=== PATIENT | male | born 1995 | race Caucasian/White ===

== ENCOUNTER 2020-10-05 15:41 | Emergency (ER) | payer BC, SELFPAY ==
--- NOTE | ~2020-10-05 | CT_ITS ---
EXAMINATION: CT ABDOMEN AND PELVIS WITHOUT CONTRAST CLINICAL INFORMATION: Left lower quadrant pain. Question stone COMPARISON: None TECHNIQUE: Multidetector volumetric imaging was performed from the superior aspect of the liver through the pubic symphysis. Sagittal and coronal reformatted images were obtained on the technologist's workstation. This CT examination was performed using dose optimization techniques as appropriate, variously including the following: *Automated exposure control *Adjustment of mA and/or kV according to patient size (this includes techniques or standardized protocols for targeted exams where dose is matched to indication/reason for exam; i.e. extremities or head) *Use of iterative reconstruction technique DLP: 847 mGy-cm FINDINGS: The lack of intravenous contrast limits evaluation of the solid visceral organs including the liver, spleen, pancreas, and kidneys. LUNG BASES: The visualized lung bases are unremarkable. LIVER, GALLBLADDER, AND BILIARY TREE: Limited non-contrast evaluation is normal. No gross focal hepatic lesion. Normal liver size and contour. No gross biliary ductal dilation. The gallbladder is unremarkable with no evidence of radiopaque gallstones, gallbladder wall thickening, or obvious pericholecystic inflammatory changes. PANCREAS: Limited non-contrast evaluation is normal. No yanni-pancreatic fluid. SPLEEN: Limited non-contrast evaluation is normal. ADRENAL GLANDS: Normal; no adrenal mass. KIDNEYS AND URETERS: There is a 3-4 mm left proximal ureteral calculus. Mild left hydronephrosis. There is a punctate 1 mm nonobstructing calculus in the left mid kidney image 334. No right renal calculi or hydronephrosis. GASTROINTESTINAL TRACT: Small bowel and colon are non-dilated. No bowel wall thickening. No pericolonic inflammatory changes to suggest colitis or diverticulitis. ABDOMINAL WALL: No hernia seen. LYMPH NODES: No pathologically enlarged lymph nodes in the abdomen or pelvis. VASCULAR: Normal caliber abdominal aorta. BLADDER: Unremarkable. PELVIC VISCERA: Normal noncontrast appearance of the prostate and seminal vesicles. OSSEOUS STRUCTURES: No acute or suspicious osseous abnormalities. CT/CT abdomen pelvis wo con IMPRESSION: 3-4 mm left proximal ureteral calculus resulting in mild left hydronephrosis.
[2020-10-05 16:06] VITALS: BP 157/94; PULSE 89; RESP 18; TEMP 36.6; O2SAT 98; BMI 36.5
[2020-10-05 16:16] LABS: MANUAL DIFF FLAG NO
[2020-10-05 16:17] LABS: Basophils Absolute Auto 0.1 X10*3/uL (0.0-0.2); Basophils Percent Auto 0.7 % (0-2); Eosinophils Absolute Auto 0.4 X10*3/uL (0.0-0.4); Eosinophils Percent Auto 3.2 % (0-4); Hematocrit 45.3 % (42-52); Hemoglobin 15.5 g/dl (14.0-18.0); Imm Gran Abs Auto 0.05 X10*3/uL (0.00-0.03); Imm Gran Pct Auto 0.4 % (0.0-0.4); Lymphocytes Absolute Auto 4.1 X10*3/uL (1.2-4.9); Lymphocytes Percent Auto 35.7 % (20-40); Mean Corpuscular HGB Conc 34.2 g/dl (31.0-36.0); Mean Corpuscular Volume 84.7 fL (80-98); Mean Platelet Volume 9.6 fL (9.4-12.4); Monocytes Absolute Auto 0.8 X10*3/uL (0.1-1.2); Monocytes Percent Auto 7.2 % (2-11); Neutrophils Absolute Auto 6.1 X10*3/uL (2.0-8.3); Neutrophils Percent Auto 52.8 % (45-73); Platelet Count 343 X10*3/uL (160-400); Red Blood Count 5.35 X10*6/uL (4.60-5.80); Red Cell Distribution Width 12.8 % (11.0-16.0); White Blood Count 11.6 X10*3/uL (4.8-10.8)
--- NOTE | 2020-10-05 16:36 | ED_ITS ---
HPI - Abdominal Pain General Chief Complaint: Abdominal Pain Stated Complaint: vomiting, abdominal pain Time Seen by Provider: 10/05/20 16:36 Source: patient Mode of arrival: ambulatory Limitations: no limitations History of Present Illness HPI narrative: Patient is 25 years old with no significant past medical history notice pain in left lower quadrant started just an hour ago pain is sharp radiating to his left testicle no dysuria or hematuria patient never had similar pain in the past no fever no chills no nausea no vomiting no family history of kidney stone patient had normal bowels no blood in stool Related Data Previous Rx's Medication Instructions Recorded oxycodone 5 mg PO Q6H PRN #20 tab 10/05/20 tamsulosin [Flomax] 0.4 mg PO DAILY #7 cap 10/05/20 Allergies Allergy/AdvReac Type Severity Reaction Status Date / Time Sulfa (Sulfonamide Allergy Unknown UNKNOWN Unverified 01/11/20 19:07 Antibiotics) [SULFA (SULFONAMIDE ANTIBIOTICS)] Review of Systems Review of Systems Constitutional : No Weight loss, No Fever, No Chills ENT/Mouth : No sore throat, No Rhinorrhea Eyes: No Eye Pain, No Swelling Cardiovascular : No Chest Pain, no palpitations Respiratory : No Cough, No Sputum, no shortness of breath Gastrointestinal : ++Nausea, No Vomiting, No Diarrhea,++ abdominal Pain, no black stools Genitourinary : No Dysuria, No Urinary Frequency Musculoskeletal : No joint pain, No Myalgias, No Joint Swelling Skin : No Skin Lesions, No rash Neuro : No Weakness, No Numbness, No Dizziness, No Headache Psych : No Anxiety/Panic, No Depression Heme/Lymph: No Bruising, No Lymphadenopathy Endocrine : No Polyuria, No Polydipsia All other systems reviewed and are negative Physical Exam Vital Signs: Vital Signs: Last Vital Signs Temp 98 F 10/05/20 18:00 Pulse 77 10/05/20 18:00 Resp 18 10/05/20 18:00 BP 138/82 10/05/20 18:00 Pulse Ox 99 10/05/20 18:00 Body Mass Index 36.5 Appearance: Alert. Oriented X3. No acute distress. Eyes: PERRLA, No Nystagmus ENT: Pharynx normal. Oral Mucosa moist Neck: Normal inspection. Neck supple. CVS: Normal heart rate and rhythm. Pulses normal. Respiratory: No respiratory distress. Equal air entry bilateral, no wheezing/rales/rhonchi Abdomen: Soft , deep tenderness LLQ, no rebound tenderness or guarding. Bowel sounds are present, no mass palpable, no CVA tenderness Skin: Skin warm and dry. Normal skin color. Normal skin turgor. Extremities: No lower extremity edema. No calf tenderness Neuro: Oriented X 3. No motor deficit. No sensory deficit.No cerebellar signs , cranial nerves II-XII intact MDM - Abdominal Pain MDM Narrative Medical decision making narrative: Patient left sided pain from small 3 mm stone with slight hydronephrosis. In the ER before leaving patient urinated and noticed small amount of stone he passed likely. Patient is pain-free at the time of discharge Lab Data Attestation: I reviewed the patient's lab results. Result diagrams: 10/05/20 16:12 10/05/20 16:12 Labs: Lab Results 10/05/20 10/05/20 10/05/20 Range/Units 16:12 16:12 19:29 WBC 11.6 H (4.8-10.8) X10*3/uL RBC 5.35 (4.60-5.80) X10*6/uL Hgb 15.5 (14.0-18.0) g/dl Hct 45.3 (42-52) % MCV 84.7 (80-98) fL MCH 29.0 (27.0-33.0) pg MCHC 34.2 (31.0-36.0) g/dl RDW 12.8 (11.0-16.0) % Plt Count 343 (160-400) X10*3/uL MPV 9.6 (9.4-12.4) fL Immature Gran % (Auto) 0.4 (0.0-0.4) % Neut % (Auto) 52.8 (45-73) % Lymph % (Auto) 35.7 (20-40) % [place] % (Auto) 7.2 (2-11) % Eos % (Auto) 3.2 (0-4) % Baso % (Auto) 0.7 (0-2) % Lymph # (Auto) 4.1 (1.2-4.9) X10*3/uL [place] # (Auto) 0.8 (0.1-1.2) X10*3/uL Eos # (Auto) 0.4 (0.0-0.4) X10*3/uL Baso # (Auto) 0.1 (0.0-0.2) X10*3/uL Abs Immat Gran (auto) 0.05 H (0.00-0.03) X10*3/uL Absolute Neuts (auto) 6.1 (2.0-8.3) X10*3/uL Absolute Nucleated RBC 0.000 (0.0-0.012) X10*3/uL Nucleated RBC % (auto) 0.0 (0.0-0.2) /100WBC Sodium 139 (135-145) mmol/L Potassium 3.8 (3.3-5.1) mmol/L Chloride 108 (96-108) mmol/L Carbon Dioxide 18 L (22-29) mmol/L Anion Gap 17 (12-20) BUN 15 (9-16) mg/dL Creatinine 1.22 (0.5-1.4) mg/dL Estim Creat Clear Calc 111.7 Estimated GFR > 60 Random Glucose 149 H (60-115) mg/dL Calcium 10.1 (8.4-10.2) mg/dL Total Bilirubin 1.3 H (0.0-1.0) mg/dL Direct Bilirubin 0.5 (0.0-0.5) mg/dL AST 39 H (5-37) U/L ALT 34 (0-40) U/L Alkaline Phosphatase 73 (39-117) U/L Total Protein 7.4 (6.5-8.0) g/dL Albumin 4.6 (3.5-5.0) g/dL Lipase 45 (8-78) U/L Urine Color YELLOW Urine Appearance CLOUDY Urine pH 6.0 (5.0-8.0) Ur Specific [place] >= 1.030 H (1.005-1.025) Urine Protein 1+ H (NEG-TRACE) MG/DL Urine Glucose (UA) NEG (NEG) MG/DL Urine Ketones 40 (NEG) MG/DL Urine Blood 3+ H (NEG) Urine Nitrite NEG (NEG) Ur Leukocyte Esterase NEG (NEG) Urine RBC 50-75 H (0) /HPF Urine WBC 0-2 (0-4) /HPF Ur Squamous Epith Cells 2+ /LPF Urine Bacteria TRACE /LPF Discharge Plan Discharge Clinical Impression: Calculus of kidney Patient Disposition: Home, Self-Care Instructions: Kidney Stones (ED) Prescriptions: New oxycodone 5 mg tablet 5 mg PO Q6H PRN (Reason: Moderate Pain (Scale Score 5-6)) Qty: 20 RF: 0 tamsulosin [Flomax] 0.4 mg capsule 0.4 mg PO DAILY Qty: 7 RF: 0 Referrals: Paddy Goldman MD [Physician] - 1 week Interventions: ED Discharge Assessment Last Done: 10/05/20 19:53 Discharge Date/Time: 10/05/20 19:54 [facility] Social History Social History Advance Directives: No Advance Directives Information Provided: No
[2020-10-05 16:48] LABS: Alanine Aminotransferase 34 U/L (0-40); Albumin Level 4.6 g/dL (3.5-5.0); Alkaline Phosphatase 73 U/L (39-117); Anion Gap 17 (12-20); Aspartate Amino Transferase 39 U/L (5-37); Bilirubin Direct 0.5 mg/dL (0.0-0.5); Bilirubin Total 1.3 mg/dL (0.0-1.0); Blood Urea Nitrogen 15 mg/dL (9-16); Calcium 10.1 mg/dL (8.4-10.2); Carbon Dioxide 18 mmol/L (22-29); Chloride 108 mmol/L (96-108); Creatinine Clr Calc Pharmacy 111.7; Estimated Glomerular Filt Rate > 60; Glucose Random 149 mg/dL (60-115); Lipase 45 U/L (8-78); Potassium 3.8 mmol/L (3.3-5.1); Sodium 139 mmol/L (135-145); Total Protein 7.4 g/dL (6.5-8.0)
[2020-10-05 16:57] VITALS: RESP 18
[2020-10-05] MEDS: ondansetron HCL 4 MG/2 ML VIAL IVPUSH (16:57)
[2020-10-05] MEDS: Morphine Sulfate 4 MG/ML CARTRIDGE IVPUSH (16:57)
[2020-10-05 18:00] VITALS: BP 138/82; PULSE 77; RESP 18; TEMP 36.6; O2SAT 99
[2020-10-05] MEDS: Ketorolac Tromethamine 30 MG/ML VIAL IVPUSH (18:35)
[2020-10-05] MEDS: 0.9 % Sodium Chloride 1,000 ML 999 ML IVCONT (18:36)
[2020-10-05] MEDS: Tamsulosin HCL 0.4 MG CAPSULE PO (18:36)
[2020-10-05 19:36] LABS: Glucose Urine UA NEG (NEG); Leukocyte Esterase Urine NEG (NEG); Nitrite Urine NEG (NEG); Specific Gravity - Urine >= 1.030 (1.005-1.025); Urine Blood 3+ (NEG); Urine Ketones 40 MG/DL (NEG); Urine Protein 1+ MG/DL (NEG-TRACE)
[2020-10-05 19:38] LABS: Appearance Urine CLOUDY; Color Urine YELLOW
[2020-10-05 19:43] LABS: Bacteria Urine TRACE /LPF; RBC Urine 50-75 /HPF (0); Squamous Epithelial Cell Urine 2+ /LPF; WBC Urine 0-2 /HPF (0-4)
== END 2020-10-05 19:54 | disposition home or self-care (01) ==
PROVIDERS: Emergency Provider Internal Medicine
DX: N20.0 Calculus of kidney (principal)
CPT/HCPCS: 36415; 74176; 80053; 80076; 81001; 82248; 83690; 85025; 96361; 96374; 96375; 99284; J1885; J2270; J2405

== ENCOUNTER 2020-11-12 13:16 | Emergency (ER) | payer BC, SELFPAY ==
--- NOTE | ~2020-11-12 | US_ITS ---
EXAMINATION: US RETROPERITONEAL LIMITED (RENAL ONLY) CLINICAL INFORMATION: Left pelvic and testicular pain.. COMPARISON: None TECHNIQUE: Routine grayscale imaging of the kidneys is performed. FINDINGS: RIGHT KIDNEY: 11.6 x 4.3 x 5.8 cm (SAG x AP x TRV). The kidney is normal in size, contour, and echogenicity. Renal cortical thickness is normal. No calculi or focal parenchymal lesions. No hydronephrosis. LEFT KIDNEY: 13.2 x 6.1 x 5.4 cm (SAG x AP x TRV). The kidney is normal in size, contour, and echogenicity. Renal cortical thickness is normal. There is mild hydronephrosis but no echogenic stones, cyst or solid mass. Bilateral ureteral jets were not seen. The bladder is not distended. US/US renal BI IMPRESSION: Mild left hydronephrosis without any echogenic stones. The right kidney is unremarkable.
[2020-11-12 13:37] VITALS: BP 141/85; PULSE 75; RESP 18; TEMP 36.7; O2SAT 96; BMI 37.0
[2020-11-12 13:53] LABS: Glucose Urine UA NEG (NEG); Leukocyte Esterase Urine NEG (NEG); Nitrite Urine POS (NEG); PH 5.5 (5.0-8.0); Specific Gravity - Urine >= 1.030 (1.005-1.025); Urine Blood 3+ (NEG); Urine Ketones NEG (NEG); Urine Protein 2+ MG/DL (NEG-TRACE)
[2020-11-12 14:00] LABS: Appearance Urine CLOUDY; Color Urine YELLOW
[2020-11-12 14:21] LABS: Bacteria Urine 2+ /LPF; Mucus Urine 1+ /LPF; RBC Urine TNTC /HPF (0); Squamous Epithelial Cell Urine 1+ /LPF
--- NOTE | 2020-11-12 14:44 | ED.MALEGU ---
HPI - Male Genitourinary General Chief complaint: Urogenital-Male Stated complaint: QUEST UTI Time Seen by Provider: 11/12/20 14:05 Source: patient Mode of arrival: ambulatory History of Present Illness HPI Narrative: 25-year-old male with a past medical history of renal stones last month presenting to the ED complaining of left-sided lower pelvic/suprapubic pain radiating to left testicle, urinary frequency, dysuria, and hematuria since yesterday. Patient also requesting STI testing as is sexually active with multiple partners. Denies fever, chills, nausea/diarrhea, penile discharge/lesions, flank pain, testicular swelling MD Complaint: testicle pain and dysuria Related Data Previous Rx's Medication Instructions Recorded oxycodone 5 mg PO Q6H PRN #20 tab 10/05/20 tamsulosin [Flomax] 0.4 mg PO DAILY #7 cap 10/05/20 ketorolac 10 mg PO TID PRN 5 Days #14 tab 11/12/20 levofloxacin 750 mg PO DAILY 7 Days #7 tab 11/12/20 tamsulosin [Flomax] 0.4 mg PO DAILY #10 cap 11/12/20 Allergies Allergy/AdvReac Type Severity Reaction Status Date / Time Sulfa (Sulfonamide Allergy Unknown UNKNOWN Verified 11/12/20 13:36 Antibiotics) [SULFA (SULFONAMIDE ANTIBIOTICS)] Review of Systems Review of Systems: Constitutional: No Fever, No Chills, No Fatigue, No Malaise Cardiovascular: No Chest Pain, No SOB Respiratory: No Cough, No Dyspnea Gastrointestinal: No Nausea, No Vomiting, +Abdominal pain, + left testicular pain/pelvic pain Genitourinary: + Dysuria, + Urinary Frequency, + Hematuria, No Flank Pain, No Penile discharge, No testicular swelling Musculoskeletal: No joint pain, No Myalgias, No Joint Swelling Skin: No Skin Lesions, No rash Neuro: No Weakness, No Numbness, No Headache Yes all other systems are reviewed and are negative [facility] Past Medical History Attestation statement: The following information was validated with the patient. Social History Social History Advance Directives: Yes Advance Directives Information Provided: Yes Advance Directives on File: No Physical Exam Vital Signs: Vital Signs: Last Vital Signs Temp 97.2 F 11/12/20 15:25 Pulse 75 11/12/20 15:25 Resp 16 11/12/20 15:25 BP 130/77 11/12/20 15:25 Pulse Ox 97 11/12/20 15:25 Body Mass Index 37.0 Const: General: cooperative, healthy appearing and no acute distress Orientation/consciousness: patient oriented x3 Limitations: no limitations HENMT: Head: Yes normal to inspection Ears: hearing grossly normal bilaterally General nose exam: Normal external nose present Face and sinus: Yes normal facial exam Eyes: General: appearance normal, both eyes and all related structures EOM: EOMs intact bilaterally Neck: Neck: Yes normal visual inspection Resp: Effort & Inspection: normal respiratory effort and no respiratory distress Cardio: Rate: regular rate GI: Inspection: Yes normal to inspection Palpation (GI): Soft to palpation, nontender, no guarding and not rigid : General: Yes no CVA tenderness Male General Exam: No Genital lesions present Penis: normal penis, circumcised and No Genital lesions present Meatus: meatus normal Scrotum: scrotum normal Testes: Testes normal, epididymides normal, no testicular mass and no testicular tenderness Back/Spine/Pelvis: Back: no CVA tenderness Skin: Rashes: no rashes Wounds: no wounds Neuro: General: patient oriented x3 Gait exam (Neuro): Normal gait present Extrem: General: Yes normal to inspection Course Course Course Narrative: -UA is nitrate positive and with multiple RBCs -mild leukocytosis of 11.5, BUN 19 not otherwise unremarkable/reassuring US renal BI IMPRESSION: Mild left hydronephrosis without any echogenic stones. The right kidney is unremarkable. >>1549--on re-evaluation patient reports symptomatic improvement. Results discussed with patient including need for close follow-up with Urology and compliance with antibiotics. Worrisome signs and symptoms and strict return precautions discussed, he verbalized understanding feel safe for discharge home MDM - Male Genitourinary MDM Narrative Medical decision making narrative: 25-year-old male with a past medical history of renal stones last month presenting to the ED complaining of left-sided lower pelvic/suprapubic pain radiating to left testicle, urinary frequency, dysuria, and hematuria since yesterday. On exam VSS, NAD, abdomen soft/nontender, exam WNL, no testicular pain, no CVAT. Concern for renal stone vs UTI vs ?pyelo vs STI. Unlikely testicular torsion/epididymitis or orchitis without testicular or tenderness/swelling on exam. Low concern for appendicitis/diverticulitis as abdomen is soft/nontender Plan: UA, labs, renal ultrasound, symptomatic therapies, reassess Medical Records Attestation: I reviewed the patient's medical records. Lab Data Attestation: I reviewed the patient's lab results. Result diagrams: 11/12/20 14:37 11/12/20 14:37 Labs: Lab Results 11/12/20 11/12/20 11/12/20 Range/Units 13:45 14:37 14:37 WBC 11.5 H (4.8-10.8) X10*3/uL RBC 5.39 (4.60-5.80) X10*6/uL Hgb 15.7 (14.0-18.0) g/dl Hct 45.9 (42-52) % MCV 85.2 (80-98) fL MCH 29.1 (27.0-33.0) pg MCHC 34.2 (31.0-36.0) g/dl RDW 13.0 (11.0-16.0) % Plt Count 278 (160-400) X10*3/uL MPV 10.0 (9.4-12.4) fL Immature Gran % (Auto) 0.5 H (0.0-0.4) % Neut % (Auto) 62.1 (45-73) % Lymph % (Auto) 25.0 (20-40) % [place] % (Auto) 7.0 (2-11) % Eos % (Auto) 4.7 H (0-4) % Baso % (Auto) 0.7 (0-2) % Lymph # (Auto) 2.9 (1.2-4.9) X10*3/uL [place] # (Auto) 0.8 (0.1-1.2) X10*3/uL Eos # (Auto) 0.5 H (0.0-0.4) X10*3/uL Baso # (Auto) 0.1 (0.0-0.2) X10*3/uL Abs Immat Gran (auto) 0.06 H (0.00-0.03) X10*3/uL Absolute Neuts (auto) 7.1 (2.0-8.3) X10*3/uL Absolute Nucleated RBC 0.000 (0.0-0.012) X10*3/uL Nucleated RBC % (auto) 0.0 (0.0-0.2) /100WBC Sodium 141 (135-145) mmol/L Potassium 4.2 (3.3-5.1) mmol/L Chloride 107 (96-108) mmol/L Carbon Dioxide 24 (22-29) mmol/L Anion Gap 14 (12-20) BUN 19 H (9-16) mg/dL Creatinine 1.13 (0.5-1.4) mg/dL Estim Creat Clear Calc 121.6 Estimated GFR > 60 Random Glucose 99 (60-115) mg/dL Calcium 10.3 H (8.4-10.2) mg/dL Total Bilirubin 1.0 (0.0-1.0) mg/dL Direct Bilirubin 0.3 (0.0-0.5) mg/dL AST 23 D (5-37) U/L ALT 27 (0-40) U/L Alkaline Phosphatase 75 (39-117) U/L Total Creatine Kinase 178 H (38-174) U/L Total Protein 7.8 (6.5-8.0) g/dL Albumin 4.7 (3.5-5.0) g/dL Lipase 15 (8-78) U/L Urine Color YELLOW Urine Appearance CLOUDY Urine pH 5.5 (5.0-8.0) Ur Specific [place] >= 1.030 H (1.005-1.025) Urine Protein 2+ H (NEG-TRACE) MG/DL Urine Glucose (UA) NEG (NEG) MG/DL Urine Ketones NEG (NEG) MG/DL Urine Blood 3+ H (NEG) Urine Nitrite POS H (NEG) Ur Leukocyte Esterase NEG (NEG) Urine RBC TNTC H (0) /HPF Urine WBC 1-4 (0-4) /HPF Ur Squamous Epith Cells 1+ /LPF Urine Bacteria 2+ /LPF Urine Mucus 1+ /LPF Discharge Plan Discharge Clinical Impression: Urinary tract infection, Hydronephrosis Patient Disposition: Home, Self-Care Instructions: Urinary Tract Infection in Men (ED), Hydronephrosis (ED) Additional Instructions: Your blood work was reassuring today in the emergency department Your ultrasound showed back flow of urine into her left kidney, this could be a sign a kidney stone we did not see, or that he recently passed a stone, or of a kidney infection Levaquin as antibiotic, please take as prescribed Flomax will help dilate your urethra to help pass any stone Toradol as a pain medication, take with food If her pain persists or worsens, becomes unbearable, you of constant worsening nausea/vomiting please return to the ED You need to follow-up with urology Your STI culture should be back in a couple days, we will contact you with positive results. Please inform her partners of these results. Refrain from any sexual contact until you know your results Prescriptions: New levofloxacin 750 mg tablet 750 mg PO DAILY 7 Days Qty: 7 RF: 0 ketorolac 10 mg tablet 10 mg PO TID PRN (Reason: pain) 5 Days Qty: 14 RF: 0 tamsulosin [Flomax] 0.4 mg capsule 0.4 mg PO DAILY Qty: 10 RF: 0 No Action oxycodone 5 mg tablet 5 mg PO Q6H PRN (Reason: Moderate Pain (Scale Score 5-6)) Qty: 20 RF: 0 tamsulosin [Flomax] 0.4 mg capsule 0.4 mg PO DAILY Qty: 7 RF: 0 Referrals: Paddy Goldman MD [Physician] - 1 week
[2020-11-12 14:45] LABS: MANUAL DIFF FLAG NO
[2020-11-12 14:46] LABS: Basophils Absolute Auto 0.1 X10*3/uL (0.0-0.2); Basophils Percent Auto 0.7 % (0-2); Eosinophils Absolute Auto 0.5 X10*3/uL (0.0-0.4); Eosinophils Percent Auto 4.7 % (0-4); Hematocrit 45.9 % (42-52); Hemoglobin 15.7 g/dl (14.0-18.0); Imm Gran Abs Auto 0.06 X10*3/uL (0.00-0.03); Imm Gran Pct Auto 0.5 % (0.0-0.4); Lymphocytes Absolute Auto 2.9 X10*3/uL (1.2-4.9); Mean Corpuscular HGB Conc 34.2 g/dl (31.0-36.0); Mean Corpuscular Hemoglobin 29.1 pg (27.0-33.0); Mean Corpuscular Volume 85.2 fL (80-98); Monocytes Absolute Auto 0.8 X10*3/uL (0.1-1.2); Neutrophils Absolute Auto 7.1 X10*3/uL (2.0-8.3); Neutrophils Percent Auto 62.1 % (45-73); Platelet Count 278 X10*3/uL (160-400); Red Blood Count 5.39 X10*6/uL (4.60-5.80); White Blood Count 11.5 X10*3/uL (4.8-10.8)
[2020-11-12] MEDS: Ketorolac Tromethamine 15 MG/ML VIAL IVPUSH (14:51)
[2020-11-12] MEDS: ondansetron HCL 4 MG/2 ML VIAL IVPUSH (14:51)
[2020-11-12] MEDS: 0.9 % Sodium Chloride 1,000 ML 999 ML IVCONT (14:51)
[2020-11-12 15:07] LABS: Alanine Aminotransferase 27 U/L (0-40); Albumin Level 4.7 g/dL (3.5-5.0); Alkaline Phosphatase 75 U/L (39-117); Anion Gap 14 (12-20); Aspartate Amino Transferase 23 U/L (5-37); Bilirubin Direct 0.3 mg/dL (0.0-0.5); Blood Urea Nitrogen 19 mg/dL (9-16); Calcium 10.3 mg/dL (8.4-10.2); Carbon Dioxide 24 mmol/L (22-29); Chloride 107 mmol/L (96-108); Creatinine Clr Calc Pharmacy 121.6; Estimated Glomerular Filt Rate > 60; Glucose Random 99 mg/dL (60-115); Lipase 15 U/L (8-78); Potassium 4.2 mmol/L (3.3-5.1); Sodium 141 mmol/L (135-145); Total Protein 7.8 g/dL (6.5-8.0)
[2020-11-12 15:25] VITALS: BP 130/77; PULSE 75; RESP 16; TEMP 36.2; O2SAT 97
[2020-11-13 04:47] LABS: CT PCR NOT DETECTED (Not Detect.); NG PCR NOT DETECTED (Not Detect.)
== END 2020-11-12 16:11 | disposition home or self-care (01) ==
PROVIDERS: Physician Assistant; Emergency Provider Emergency Medicine
DX: N39.0 Urinary tract infection, site not specified (principal); N13.30 Unspecified hydronephrosis; Z87.442 Personal history of urinary calculi
CPT/HCPCS: 36415; 76775; 80048; 80076; 81001; 82550; 83690; 85025; 87491; 87591; 96361; 96374; 96375; 99284; J1885; J2405

== ENCOUNTER 2021-07-06 00:22 | Emergency (ER) | payer BC, SELFPAY ==
[2021-07-06 00:29] VITALS: BP 133/62; BP 138/88; PULSE 71; PULSE 78; RESP 16; TEMP 37; O2SAT 100; O2SAT 94; BMI 36.5
--- NOTE | 2021-07-06 00:30 | ED.GENADULT ---
HPI - General Adult General Chief complaint: ETOH/Substance Use Stated complaint: overdose Time Seen by Provider: 07/06/21 00:25 Source: patient and EMS Mode of arrival: EMS Limitations: no limitations History of Present Illness HPI narrative: Patient comes to the emergency room after a possible overdose. According to the patient, he took an overdose today, then he fell asleep at home and the couch. The patient's sister noticed that the patient's lips were cyanotic, called 911, police department arrived. Workup of the patient, no Narcan given. EMS arrived and the patient was forced by PD to come to the emergency room. Patient states that he feels well otherwise. Per EMS, no Narcan given Related Data Previous Rx's Medication Instructions Recorded oxycodone 5 mg tablet 5 mg PO Q6H PRN #20 tab 10/05/20 tamsulosin 0.4 mg capsule (Flomax) 0.4 mg PO DAILY #7 cap 10/05/20 ketorolac 10 mg tablet 10 mg PO TID PRN 5 Days #14 tab 11/12/20 levofloxacin 750 mg tablet 750 mg PO DAILY 7 Days #7 tab 11/12/20 tamsulosin 0.4 mg capsule (Flomax) 0.4 mg PO DAILY #10 cap 11/12/20 Allergies Allergy/AdvReac Type Severity Reaction Status Date / Time Sulfa (Sulfonamide Allergy Unknown UNKNOWN Verified 11/12/20 13:36 Antibiotics) [SULFA (SULFONAMIDE ANTIBIOTICS)] Review of Systems Review of Systems: Constitutional : No Weight loss, No Fever, No Chills, No Night Sweats, No Fatigue, No Malaise ENT/Mouth : No Hearing loss, No Ear Pain, No Nasal Congestion, No Sinus Pain, No Hoarseness, No sore throat, No Rhinorrhea, No Swallowing Difficulty Eyes: No Eye Pain, No Swelling, No Redness, No Foreign Body, No Discharge, No Vision Changes Cardiovascular : No Chest Pain, No SOB, No Dyspnea on Exertion, No Orthopnea, No Edema, No Palpitations Respiratory : No Cough, No Sputum, No Wheezing, No Smoke Exposure, No Dyspnea Gastrointestinal : No Nausea, No Vomiting, No Diarrhea, No Constipation, No abdominal Pain, No Hematochezia, No Melena Genitourinary : no irregular bleeding, No Dysuria, No Urinary Frequency, No Hematuria, No Urinary Incontinence, No Urgency, No Flank Pain, No Urinary Flow Changes, No Hesitancy Musculoskeletal : No joint pain, No Myalgias, No Joint Swelling Skin : No Skin Lesions, No rash Neuro : No Weakness, No Numbness, No Paresthesias, No Loss of Consciousness, No Dizziness, No Headache Psych : No Anxiety/Panic, No Depression, No SI/HI/AH/VH, Heme/Lymph: No Bruising, No Bleeding,No Lymphadenopathy Endocrine : No Polyuria, No Polydipsia, No Temperature Intolerance Physical Exam ED Vital Signs: Vital Signs - 24 hr 07/06/21 00:29 07/06/21 00:33 Temperature 98.6 F Pulse Rate 71 70 Respiratory Rate 16 16 Blood Pressure 133/62 Pulse Oximetry 94 93 BMI result Body Mass Index 36.5 Const Other: Appearance: Alert. Oriented X3. No acute distress. Eyes: Pupils equal, round and reactive to light. ENT: Pharynx normal. Neck: Normal inspection. Neck supple. No lymph nodes noted. No crepitus CVS: Normal heart rate and rhythm. Pulses normal. Normal S1 and S2 Respiratory: No respiratory distress. Breath sounds normal. No Wheezing. No rales Abdomen: Soft and nontender. No rigidity. No distention. Skin: Skin warm and dry. Normal skin color. Normal skin turgor. Extremities: No lower extremity edema. No Lacerations. No Rash Neuro: Oriented X 3. No motor deficit. No sensory deficit. Moving all extermities. No slurred speech. CN 2 through 12 grossly intact Psych: Calm, cooperative, normal affect Course Course Course Narrative: Patient remains awake, alert and oriented x3, calm and cooperative. Oxygen saturation 95-96% on room air. Patient has steady gait, unassisted. Discharge Plan Discharge Clinical Impression: Accidental overdose Patient Disposition: Home, Self-Care Instructions: Prescription Opioid Overdose (ED) Additional Instructions: Please follow-up with your primary care physician tomorrow. If you have any worsening or new symptoms, please return to the emergency room or call 911 Prescriptions: No Action oxycodone 5 mg tablet 5 mg PO Q6H PRN (Reason: Moderate Pain (Scale Score 5-6)) Qty: 20 0RF tamsulosin [Flomax] 0.4 mg capsule 0.4 mg PO DAILY Qty: 7 0RF levofloxacin 750 mg tablet 750 mg PO DAILY 7 Days Qty: 7 0RF ketorolac 10 mg tablet 10 mg PO TID PRN (Reason: pain) 5 Days Qty: 14 0RF tamsulosin [Flomax] 0.4 mg capsule 0.4 mg PO DAILY Qty: 10 0RF
[2021-07-06 00:33] VITALS: PULSE 70; RESP 16; O2SAT 93
[2021-07-06 01:12] VITALS: BP 121/69; PULSE 72; RESP 16; O2SAT 98
== END 2021-07-06 01:20 | disposition home or self-care (01) ==
PROVIDERS: Emergency Provider Emergency Medicine
DX: T40.1X1A Poisoning by heroin, accidental (unintentional), initial encounter (principal); Y92.9 Unspecified place or not applicable; Z79.899 Other long term (current) drug therapy; Z71.51 Drug abuse counseling and surveillance of drug abuser
CPT/HCPCS: 99284

== ENCOUNTER 2024-01-11 15:49 | Outpatient (AMB) | payer OTHER, SELFPAY ==
[2024-01-11 15:50] VITALS: BP 126/80; PULSE 62; TEMP 37.1; O2SAT 98; BMI 29.3
--- NOTE | 2024-01-11 15:50 | MHC.OFFWIV ---
Intake Vital Signs 01/11/24 15:50 Height 5 ft 8 in Weight 193 lb BMI 29.3 BP 126/80 Blood Pressure Location Rt brachial Position Sitting Pulse 62 Pulse Source Pulse Oximeter Temp 98.7 F Temp Source Oral Pulse Oximetry (%) 98 Oxygen Delivery Method Room Air Intake Visit Reasons: [employer] ?mass LT ear Intake Note: pt c/o growth on LT ear. ? mass. Started 2 days ago Patient Tobacco Use Status: Never used Tobacco Allergies Sulfa (Sulfonamide Antibiotics) [SULFA (SULFONAMIDE ANTIBIOTICS)] Allergy (Unknown, Verified 01/11/24 15:50) UNKNOWN Do you need a note to return to daycare/school/sports/work: No HPI HPI Comments History of Present Illness Details Patient is a 28-year-old male complaining of left earlobe pain and swelling for the last 2 days. He states it feels like there is a hard rock inside of his lower earlobe. He does state he has some pain inside of the earlobe as well. He denies any change in his hearing or fevers. [facility] Social History Patient Tobacco Use Status: Never used Tobacco Review of Systems Const All systems reviewed & are unremarkable except as noted in HPI and below Physical Exam Vital Signs: Last Vital Signs Temp 98.7 F 01/11/24 15:50 Pulse 62 01/11/24 15:50 BP 126/80 01/11/24 15:50 Pulse Ox 98 01/11/24 15:50 Oxygen Delivery Method Room Air 01/11/24 15:50 BMI result Body Mass Index 29.3 Const General: cooperative, healthy appearing, comfortable, no acute distress and well developed Orientation/consciousness: patient oriented x3 Limitations: no limitations HEENT Head: Yes normal to inspection Ears: hearing grossly normal bilaterally, external ears normal (Left lower earlobe has a 0.75 cm erythematous indurated area, suspicious fo), TM normal on the left, EAC's normal (left) and mastoids normal on the left General nose exam: Normal external nose present Face and sinus: Yes normal facial exam Neck Neck: Yes normal visual inspection and Yes supple Neuro General: patient oriented x3 Assessment & Plan Assessment & Plan (1) Abscess: Code(s): L02.91 - Cutaneous abscess, unspecified Plan: Not able to drain the abscess as it is not fluctuant, we will prescribe doxycycline. Advised if it does come to a head and feels soft, please return and we could try to drain it so he can stop the antibiotics. Gave recommendations on staying out of the sun and taking doxycycline with food. Plan See above Medications: New doxycycline hyclate 100 mg PO BID 10 tabs 0RF Coding Level of Care Code New Pt Level 3 (65389) Diagnoses Abscess L02.91
== END 2024-01-11 16:51 | disposition home or self-care (01) ==
PROVIDERS: Visit Provider Physician Assistant
DX: L02.91 Cutaneous abscess, unspecified (principal)

== ENCOUNTER → 2024-01-11 15:49 | Outpatient (BNVA) | payer OTHER, SELFPAY | DX: H60.02 Abscess of left external ear (principal) ==

== ENCOUNTER 2024-07-20 14:15 | Outpatient (AMB) | payer OTHER, SELFPAY ==
[2024-07-20 14:17] VITALS: BP 120/86; PULSE 118; TEMP 39.2; O2SAT 98
--- NOTE | 2024-07-20 14:17 | MHC.OFFWIV ---
Intake Vital Signs 07/20/24 14:17 Weight 204 lb BP 120/86 Blood Pressure Location Lt brachial Position Sitting Pulse 118 H Pulse Source Pulse Oximeter Temp 102.5 F H Temp Source Oral Pulse Oximetry (%) 98 Oxygen Delivery Method Room Air Intake Visit Reasons: EP Sore throat, fever Intake Note: Patient here for sore throat, chills that started last night. Patient Tobacco Use Status: Never used Tobacco Allergies Sulfa (Sulfonamide Antibiotics) [SULFA (SULFONAMIDE ANTIBIOTICS)] Allergy (Unknown, Verified 07/20/24 14:22) UNKNOWN Do you need a note to return to daycare/school/sports/work: Yes HPI HPI Comments History of Present Illness Details 29 y/o male patient [facility] Medical History (Updated 07/20/24 @ 14:50 by Jane Clayton NP) Acute streptococcal pharyngitis Social History Patient Tobacco Use Status: Never used Tobacco Review of Systems Const All systems reviewed & are unremarkable except as noted in HPI and below Physical Exam Vital Signs: Last Vital Signs Temp 102.5 F H 07/20/24 14:17 Pulse 118 H 07/20/24 14:17 BP 120/86 07/20/24 14:17 Pulse Ox 98 07/20/24 14:17 Oxygen Delivery Method Room Air 07/20/24 14:17 Const General: no acute distress; No comfortable Nutritional Appearance: overweight Orientation/consciousness: patient oriented x3 HEENT Head: Yes normocephalic Ears: external ears normal and TM abnormal with fluid behind the TM bilateral General nose exam: Nasal discharge present Mouth: moist mucous membranes and Abnormal oral and palatal mucosa present erythematous and white patches Throat: Yes abnormal tonsil (Enlarged Tonsils +3) Resp Effort & Inspection: normal respiratory effort and able to speak in complete sentences Auscultation: clear to auscultation bilaterally, no crackles, no rales, no rhonchi and no wheezes Cardio Rate: regular rate Heart sounds: S1 normal heart sound present and S2 normal heart sound present Neuro General: patient oriented x3 Results AMB Rapid Strep AMB Rapid Strep Negative Last Edit by NYDIA Edwards on 07/20/24 14:39 Results Reviewed Results Reviewed: Laboratory Last Values Strep Scn [facility] Negative 07/20/24 14:38 Assessment & Plan Assessment & Plan (1) Acute streptococcal pharyngitis: Code(s): J02.0 - Streptococcal pharyngitis Plan: Rapid Strep positive Ordered PCN Ordered Prednisone Acetaminophen for Fever relief Rest and hydrate well with plenty of warm fluids. Orders: Orders AMB Rapid Strep Screen Today Z13.9 - Encounter for screening, unspecified Medications: New penicillin V potassium 500 mg PO TID 30 tabs 0RF 10 days J02.0 - Streptococcal pharyngitis prednisone 50 mg PO DAILY 5 tabs 0RF 5 days J02.0 - Streptococcal pharyngitis acetaminophen 1,000 mg (2 x 500 mg) PO Q6H PRN 60 caps 0RF pain J02.0 - Streptococcal pharyngitis Coding Level of Care Code Est Pt Level 4 (92366) Diagnoses Acute streptococcal pharyngitis J02.0 Time Spent (min) 20
--- OUTSIDE RECORDS SUMMARY | 2024-07-20 17:57 | XMS_ITS ---
Author Organization [facility] Address [address] [place] [phone] Care Team Providers Care Coke Loader Name Role Phone JESSA MADISON Unavailable [phone] REASON FOR VISIT prep fu/sti testing Social History Sex Assigned At : Social History Observation Description Sex Assigned At Male Encounters Encounter Location Date Provider Diagnosis [place] [facility] [address] [place] [address] [place] [phone] 07/17/2024 JESSA MADISON Plan Of Treatment No Information Progress Notes * Pedro MAYFIELDDOB:1995 (29 yo M)Acc No.[id number]:07/17/2024 Progress Notes Patient:?Pedro MAYFIELD Provider:?Jessa Madison NP :1995???Age:29 Y???Sex:Male Estuardo e:07/17/2024 Address:[address] [place] [address] [address], [place], [id number] Subjective: * Chief Complaints: * ???1. Prep fu/sti testing. * Medical History:? Objective: * Vitals:? Assessment: Plan: * Treatment: * Billing Information: * Visit Code:? * Procedure Codes:? * Electronic signature of LAUREN MADISON NP on 07/20/2024 at 05:57 PM EDT Sign off status: Pending * Provider:?Jessa Madison NP Date:? 025 Generated for Printi ng/Faxing/eTransmitting on:?07/20/2024 05:57 PM EDT
--- OUTSIDE RECORDS SUMMARY | 2024-07-20 17:57 | XMS_ITS ---
Author Organization [facility] Address [address] [place] [phone] Care Team Providers Care Tennis Court Attendant Name Role Phone FELI MAYO Unavailable [phone] Allergies Allergen (clinical drug ingredient) Drug/Non Drug Allergy documented on EMR Reaction Allergy Type Onset Date Status Substance with sulfonamide structure and antibacterial mechanism of action (substance) sulfa (uncoded) Unknown Allergy Active REASON FOR VISIT PrEP restart, doxy-PEP start Medications Medication SIG (Take, Route, Fr equency, Duration) Notes Start Date End Date Status Truvada 200-300 MG 1 tablet Orally Once a day for 90 days Active Social History Sex Assigned At : Social History Observation Description Sex Assigned At Male Encounters Encounter Location Date Provider Diagnosis [address] [phone] 04/15/2024 FELIKASH MAYO Other correction (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 therapy Z79.899 and HIV Screening Z11.4 Assessments Encounter Date Diagnosis (ICD Code) Assessment Notes Treatment Notes Treatment Clinical Notes Section Notes 04/15/2024 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 Refill Truvada Tablet, 200-300 MG, Orally, 90 Tablet, 1 tablet, Once a day, 90 days, Refills=0 Subjective: * Chief Complaints: * ???PrEP restart, doxy-PEP st art * Medical History:? * Surgical History:? * Hospitalization/Major Diagno stic Procedure:? * Medications:? * Allergies:?sulfano[Allergies Verified] Objective: * Vitals:? * Physical Examination:? Assessment: * Assessment: 1.?HIV Screening - Z11.4 (Pr imary)???2.?Other correction (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 therapy - Z79.899??? Plan: * Treatment: 2.?Other correction (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 therapy? Refill Truvada Tablet, 200-300 MG, 1 tablet, Orally, Once a day, 90 days, 90 Tablet, Refills 0.?? * Procedure Codes:? * true * Date:? Generated for Bernarda chapman/Mehnaz/eTransmitting on:?07/20/2024 05:57 PM EDT
--- OUTSIDE RECORDS SUMMARY | 2024-07-20 17:57 | XMS_ITS | Patient Health Record ---
[facility] Organization [facility] Address [address] [id number] Care Team Providers Care Unattended Ground Sensor Specialist Name Role Phone CHRISTINEALEJO Duncan Unavailable [phone] FELI MAYO Unavailable [phone] Subha March Unavailable [phone] Allergies Allergen (clinical drug ingredient) Drug/Non Drug Allergy documented on EMR Reaction Allergy Type Onset Date Status Substance with sulfonamide structure and antibacterial mechanism of action (substance) sulfa (uncoded) Unknown Allergy Active Results Component Value Reference Range Notes Ct/GC PENNIE, Pharyngeal-[id number] Reviewed date:04/21/2024 04:44:21 PM Interpretation:Negative Performing Lab:[facility] [place], [address], [address], [facility], Phone - [phone], Director - [facility] Notes/Report: Clinical Information:SRC:Urine C. trachomatis, PENNIE, Pharyn Negative Negative N. gonorrhoeae, PENNIE, Pharyn Negative Negative Ct/GC PENNIE, Rectal-[id number] Reviewed date:04/21/2024 04:44:34 PM Interpretation:Negative Performing Lab:[facility] [place], [address], [address], [facility], Phone - [phone], Director - [facility] Notes/Report: Clinical Information:SRC:Urine C. trachomatis, PENNIE, Rectal Negative Negative N. gonorrhoeae, PENNIE, Rectal Negative Negative Chlamydia/GC Amplification-1 [id number] Reviewed date:04/21/2024 04:44:48 PM Interpretation:Negative Performing Lab:[facility] [place], [address], [address], [facility], Phone - [phone], Director - [facility] Notes/Report: Clinical Information:SRC:Urine Chlamydia trachomatis, PENNIE Negative Negative Neisseria gonorrhoeae, PENNIE Negative Negative HIV Ab/p24 Ag with Reflex-08 [id number] Reviewed date:04/21/2024 04:44:05 PM Interpretation:Negative Performing Lab:[facility] [place], [address], [address], [place], Phone - [phone], Director - [facility] Notes/Report: Clinical Information:SRC:Urine HIV Ab/p24 Ag Screen Non Reactive Non Reactive HIV-1/HIV-2 antibodies and HIV-1 p24 antigen were NOT detected. There is no laboratory evidence of HIV infection. HIV Negative T pallidum Screening Montara -[id number] Reviewed date:04/21/2024 04:43:51 PM Interpretation:Negative Performing Lab:[facility], [address], [address], [place], Phone - [phone], Director - [facility] Notes/Report: Clinical Information:SRC:Urine T pallidum Antibodies Non Reactive Non Reactive Ct/GC PENNIE, Pharyngeal-[id number] Reviewed date:01/12/2024 02:05:07 PM Interpretation:Negative Performing Lab:[facility] [place], [address], [address], [place], Phone - [phone], Director - [facility] Notes/Report: C. trachomatis, PENNIE, Pharyn Negative Negative N. gonorrhoeae, PENNIE, Pharyn Negative Negative Ct/GC PENNIE, Rectal-[id number] Reviewed date:01/14/2024 09:06:21 AM Interpretation:GC Positive Performing Lab:[facility] [place], [address], [address], [place], Phone - [phone], Director - [facility] Notes/Report: C. trachomatis, PENNIE, Rectal Negative Negative N. gonorrhoeae, PENNIE, Rectal Positive Negative Chlamydia/GC Amplification-1 [id number] Reviewed date:01/12/2024 02:04:58 PM Interpretation:Negative Performing Lab:[facility] [place], [address], [address], [place], Phone - [phone], Director - [facility] Notes/Report: Chlamydia trachomatis, PENNIE Negative Negative Neisseria gonorrhoeae, PENNIE Negative Negative HIV Ab/p24 Ag with Reflex-08 [id number] Reviewed date:01/12/2024 02:04:46 PM Interpretation:Non-reactive Performing Lab:[facility] [place], [address], Phone - [phone], Director - [facility] Notes/Report: HIV Ab/p24 Ag Screen Non Reactive Non Reactive HIV-1/HIV-2 antibodies and HIV-1 p24 antigen were NOT detected. There is no laboratory evidence of HIV infection. HIV Negative T pallidum Screening Montara -[id number] Reviewed date:01/12/2024 02:04:35 PM Interpretation:Non-reactive Performing Lab:[facility] [place], [address], Phone - [phone], Director - [facility] Notes/Report: T pallidum Antibodies Non Reactive Non Reactive Chlamydia/GC Amplification-1 [id number] Reviewed date:02/03/2024 01:22:11 PM Interpretation:Negative Performing Lab:[facility] [place], [address], [address], [facility], Phone - [phone], Director - [facility] Notes/Report: Chlamydia trachomatis, PENNIE Negative Negative Neisseria gonorrhoeae, PENNIE Negative Negative Ct/GC PENNIE, Rectal-[id number] Reviewed date:02/03/2024 01:22:22 PM Interpretation:Negative Performing Lab:[facility] [place], [address], [address], [place], Phone - [phone], Director - [facility] Notes/Report: C. trachomatis, PENNIE, Rectal Negative Negative N. gonorrhoeae, PENNIE, Rectal Negative Negative Ct/GC PENNIE, Pharyngeal-[id number] Reviewed date:02/15/2024 04:36:12 PM Interpretation:Negative Performing Lab:[facility] [place], [address], [address], [facility], Phone - [phone], Director - [facility] Notes/Report: C. trachomatis, PENNIE, Pharyn Negative Negative N. gonorrhoeae, PENNIE, Pharyn Negative Negative HCV Antibody-[id number] Reviewed date:10/14/2023 09:17:58 AM Interpretation:Non-reactive Performing Lab:[facility] [place], [address], [address], [place], Phone - [phone], Director - [facility] Notes/Report: Hep C Virus Ab Non Reactive Non Reactive HCV antibody alone does not differentiate between previously resolved infection and active infection. Equivocal and Reactive HCV antibody results should be followed up with an HCV RNA test to support the diagnosis of active HCV infection. Ct/GC PENNIE, Pharyngeal-[id number] Reviewed date:10/14/2023 09:18:27 AM Interpretation:Negative Performing Lab:[facility] [place], [address], [address], [place], Phone - [phone], Director - [facility] Notes/Report: C. trachomatis, PENNIE, Pharyn Negative Negative N. gonorrhoeae, PENNIE, Pharyn Negative Negative Ct/GC PENNIE, Rectal-[id number] Reviewed date:10/14/2023 09:17:14 AM Interpretation:Negative Performing Lab:[facility] [place], [address], [address], [place], Phone - [phone], Director - [facility] Notes/Report: C. trachomatis, PENNIE, Rectal Negative Negative N. gonorrhoeae, PENNIE, Rectal Negative Negative Chlamydia/GC Amplification-1 [id number] Reviewed date:10/14/2023 09:18:17 AM Interpretation:Negative Performing Lab:[facility] [place], [address], [address], [place], Phone - [phone], Director - [facility] Notes/Report: Chlamydia trachomatis, PENNIE Negative Negative Neisseria gonorrhoeae, PENNIE Negative Negative HIV Ab/p24 Ag with Reflex-08 [id number] Reviewed date:10/09/2023 04:57:40 PM Interpretation:Non-reactive Performing Lab:[facility] [place], [address], Phone - [phone], Director [facility] Notes/Report: HIV Ab/p24 Ag Screen Non Reactive Non Reactive HIV-1/HIV-2 antibodies and HIV-1 p24 antigen were NOT detected. There is no laboratory evidence of HIV infection. HIV Negative T pallidum Screening Montara -[id number] Reviewed date:10/14/2023 09:17:24 AM Interpretation:Non-reactive Performing Lab:[facility] [place], [address], Phone - [phone], Director [facility] Notes/Report: T pallidum Antibodies Non Reactive Non Reactive Hepatitis B Surf Ab Quant-00 [id number] Reviewed date:10/11/2023 01:09:35 PM Interpretation:Not Immune Performing Lab:[facility] [place], [address], [address], [place], Phone - [phone], [facility] Notes/Report: Hepatitis B Surf Ab Quant <3.5 Immunity>9.9 mI U/mL Status of Immunity Anti-HBs Level Inconsistent with Immunity 0.0 - 9.9 Consistent with Immunity >9.9 Effective October 25, 2023 the reference interval will be changing to: Immunity >10 HBsAg Screen-[id number] Reviewed date:10/14/2023 09:18:08 AM Interpretation:Negative Performing Lab:[facility] [place], [address], [address], [place], Phone - [phone], Director [facility] Notes/Report: HBsAg Screen Negative Negative Creatinine-[id number] Reviewed date:10/14/2023 09:20:30 AM Interpretation:Cr 0.85, eCrCl 137 ml/min Performing Lab:[facility], [address] [facility], [place], Phone - [phone], Director - [facility] Notes/Report: Creatinine 0.86 0.76-1.27 mg/dL eGFR 122 >59 mL/min/1.73 Reason For Referral No Information Medications Medication SIG (Take, Route, Frequency, Duration) Notes Start Date End Date Status cefTRIAXone Sodium 500 MG as directed Injection Once for 1 days Not-Taking Doxycycline Not-Taki ng Truvada 200-300 MG 1 tablet Orally Once a day for 90 days Active Truvada 200-300 MG 1 tablet Orally Once a day for 30 days Not-Taking Doxycycline Hyclate 100 MG 2 tablets Orally Take ideally within 24 hours but can be up to 72 hours after unprotected episode. No more than 1 dose in 24 hours for 30 days 04/15/2024 Active Social History Sex Assigned At : Social History Observation Description Sex Assigned At Male Section Notes: Aptima/ bw Vital Signs Blood pressure diastolic 66 mm Hg 01/05/2024 Height 5'7 in 01/05/2024 Blood pressure systolic 118 mm Hg 01/05/2024 Weight 192.7 lbs 01/05/2024 BMI 30.18 kg/m2 01/05/2024 Encounters Encounter Location Date Provider Diagnosis [facility] [place], [place] [phone] 10/07/2023 FELI MAYO Other care home (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 therapy Z79.899 ; Contact with and (suspected) exposure to other viral communicable diseases Z20.828 ; Encounter for screening for human immunodeficiency virus [HIV] Z11.4 ; Encounter for HIV pre-exposure prophylaxis Z29.81 ; Other problems related to lifestyle Z72.89 ; Encounter for screening for infections with a predominantly sexual mode of transmission Z11.3 and Screening for other viral diseases Z11.[address] [id number] 01/05/2024 FELI MAYO 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 control 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 (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 therapy Z79.899 ; Contact with and (suspected) exposure to other viral communicable diseases Z20.828 ; Encounter for screening for human immunodeficiency virus [HIV] Z11.4 ; Encounter for HIV pre-exposure prophylaxis Z29.81 and Encounter for screening for infections with a predominantly sexual mode of transmission Z11.[address] [id number] 01/13/2024 FELI MAYO Gonorrhea A54.[address] [id number] 01/27/2024 FELI MAYO Encounter for screen ing for infections with a predominantly sexual mode of transmission Z11.3 ; Counseling, unspecified Z71.9 and Other problems related to lifestyle Z72.[address] [id number] 04/15/2024 FELI MAYO Encounter for screen ing for human immunodeficiency virus [HIV] Z11.4 ; Encounter for HIV pre-exposure prophylaxis Z29.81 ; Encounter for screening for infections with a predominantly sexual mode of transmission Z11.3 ; Other problems related to lifestyle Z72.89 and Contact with or exposure to STI Z20.[address] [id number] 04/18/2024 ALEJO SANTAMARIA [place] [facility] [address] [place], [place] [phone] 09/16/2023 Subha March Contact with and (suspected) exposure to other viral communicable diseases Z20.[address] [id number] 10/07/2023 FELI MAYO [address] [id number] 01/05/2024 FELI MAYO [address] [id number] 01/06/2024 FELI MAYO [address] [id number] 04/15/2024 FELI MAYO Other care home (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 therapy Z79.899 and HIV Screening Z11.4 Assessments Encounter Date Diagnosis (ICD Code) Assessment Notes Treatment Notes Treatment Clinical Notes Section Notes 09/16/2023 Contact with and (suspected) exposure to other viral communicable diseases (ICD-10 - Z20.828) 10/07/2023 Contact with and (suspected) exposure to other viral communicable diseases (ICD-10 - Z20.828) Need 2 out of 3 Sections from A-C Section A) Problems (only need one from below) Section B) Data (need at least one of the following categories in this section) Category 1: (Choose three of the following): Order Unique tests Section C) Risk (any one of the following) Prescription drug management (this counts for the whole section) 10/07/2023 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 control 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 (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 therapy (ICD-10 - Z79.899) For Cr check at this time. Will check on Hep B and C status. Refills sent now and will fu if any concerns regarding labs Need 2 out of 3 Sections from A-C Section A) Problems (only need one from below) Section B) Data (need at least one of the following categories in this section) Category 1: (Choose three of the following): Order Unique tests Section C) Risk (any one of the following) Prescription drug management (this counts for the whole section) 01/05/2024 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 control 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 (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 therapy (ICD-10 - Z79.899) For PrEP labs today. 90 day Rx sent. Will fu on any concerning labs. Will further evaluate anal symptoms by ruling out STI's. If neg can fu with PCP with possible hemorrhoids Need 2 out of 3 Sections from A-C Section A) Problems (only need one from below) Section B) Data (need at least one of the following categories in this section) Category 1: (Choose three of the following): Order Unique tests Section C) Risk (any one of the following) Prescription drug management (this counts for the whole section) 01/13/2024 Gonorrhea (ICD-10 - A54.9) Prescribe 1g cefTRIAXone if client weight is over 300lb. Partner notification and treatment discussed. Partner treatment offered. Advised to abstain from sex for 7 days after treatment of self and partner. PID precautions reviewed. 100% condom use encouraged. DPH form completed and faxed. Clt observed for at least 15 min post injection. Tolerated well. LUCA in 2 wks and rescreening in 3 months Spent 15 minutes doing the following: Chart Prep Obtaining/revi newton history Performing medically necessary exam Counseling/Control Systems Specialist rdination of Care Documenting the visit Educating the patient Ordering medication/yeni t/procedures Established Patient: [id number] 10 Minutes 01/27/2024 Encounter for screening for infections with a predominantly sexual mode of transmission (ICD-10 - Z11.3) Discussed STI risks, screenings that are available through [facility] and safe sex. Reviewed the possible risk of fasle positive results 2 wks post treatment. Will contact clt with any positive results for follow-up plan as needed Clt aware of lab processing times and how to view results on portal and how positive results will be communicated Spent 15 minutes doing the following: Chart Prep Obtaining/revi newton history Performing medically necessary exam Counseling/Control Systems Specialist rdination of Care Documenting the visit Educating the patient Ordering medication/yeni t/procedures Established Patient: [id number] 10 Minutes 04/15/2024 Encounter for screening for human immunodeficiency virus [HIV] (ICD-10 - Z11.4) Need 2 out of 3 Sections from A-C Section A) Problems (only need one from below) Section B) Data (need at least one of the following categories in this section) Category 1: (Choose three of the following): Order Unique tests Section C) Risk (any one of the following) Prescription drug management (this counts for the whole section) 04/15/2024 Other care home (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 therapy (ICD-10 - Z79.899) 04/15/2024 HIV Screening (ICD-10 - Z11.4) 04/15/2024 Encounter for HIV pre-exposure prophylaxis (ICD-10 - Z29.81) For PrEP labs. May restart meds now or wait until HIV test results back. Will do HIV RNA given gap in PrEP use and potential for delayed HIV dx detection if recently exposed. Will send Rx once results reviewed Need 2 out of 3 Sections from A-C Section A) Problems (only need one from below) Section B) Data (need at least one of the following categories in this section) Category 1: (Choose three of the following): Order Unique tests Section C) Risk (any one of the following) Prescription drug management (this counts for the whole section) 01/27/2024 Counseling, unspecified (ICD-10 - Z71.9) Spent 15 minutes doing the following: Chart Prep Obtaining/revi newton history Performing medically necessary exam Counseling/Control Systems Specialist rdination of Care Documenting the visit Educating the patient Ordering medication/yeni t/procedures Established Patient: [id number] 10 Minutes 04/15/2024 Encounter for screening for infections with a predominantly sexual mode of transmission (ICD-10 - Z11.3) Discussed STI risks, screenings that are available through [facility] and safe sex. Clt aware of lab processing times and how to view results on portal and how positive results will be communicated Lab collection Tue 1pm Need 2 out of 3 Sections from A-C Section A) Problems (only need one from below) Section B) Data (need at least one of the following categories in this section) Category 1: (Choose three of the following): Order Unique tests Section C) Risk (any one of the following) Prescription drug management (this counts for the whole section) 01/05/2024 Contact with and (suspected) exposure to other viral communicable diseases (ICD-10 - Z20.828) Need 2 out of 3 Sections from A-C Section A) Problems (only need one from below) Section B) Data (need at least one of the following categories in this section) Category 1: (Choose three of the following): Order Unique tests Section C) Risk (any one of the following) Prescription drug management (this counts for the whole section) 10/07/2023 Encounter for screening for human immunodeficiency virus [HIV] (ICD-10 - Z11.4) Discussed STI risks, screenings that are available through [facility] and safe sex. For Hep B and C screening today. Clt aware of lab processing times and how to view results on portal and how positive results will be communicated Need 2 out of 3 Sections from A-C Section A) Problems (only need one from below) Section B) Data (need at least one of the following categories in this section) Category 1: (Choose three of the following): Order Unique tests Section C) Risk (any one of the following) Prescription drug management (this counts for the whole section) 10/07/2023 Encounter for HIV pre-exposure prophylaxis (ICD-10 - Z29.81) Need 2 out of 3 Sections from A-C Section A) Problems (only need one from below) Section B) Data (need at least one of the following categories in this section) Category 1: (Choose three of the following): Order Unique tests Section C) Risk (any one of the following) Prescription drug management (this counts for the whole section) 01/27/2024 Other problems related to lifestyle (ICD-10 - Z72.89) Spent 15 minutes doing the following: Chart Prep Obtaining/revi newton history Performing medically necessary exam Counseling/Control Systems Specialist rdination of Care Documenting the visit Educating the patient Ordering medication/yeni t/procedures Established Patient: 72022 10 Minutes 01/05/2024 Encounter for screening for human immunodeficiency virus [HIV] (ICD-10 - Z11.4) Discussed STI risks, screenings that are available through [facility] and safe sex. Clt aware of lab processing times and how to view results on portal and how positive results will be communicated Need 2 out of 3 Sections from A-C Section A) Problems (only need one from below) Section B) Data (need at least one of the following categories in this section) Category 1: (Choose three of the following): Order Unique tests Section C) Risk (any one of the following) Prescription drug management (this counts for the whole section) 04/15/2024 Other problems related to lifestyle (ICD-10 - Z72.89) Need 2 out of 3 Sections from A-C Section A) Problems (only need one from below) Section B) Data (need at least one of the following categories in this section) Category 1: (Choose three of the following): Order Unique tests Section C) Risk (any one of the following) Prescription drug management (this counts for the whole section) 04/15/2024 Contact with or exposure to STI (ICD-10 - Z20.2) Reviewed Doxy-PEP, benefits and risks. Can potentially reduce the risk for acquiring CT, GC and syphilis by about 60%. Reviewed how to take it. 2 pills ideally within 24 hours but can be taken up to 72 hours after unprotected sex. Clt to sit up for 30 min after taking, have food prior and plenty of water. No calcium products within 2 hours of taking doxy. No more than 1 dose per 24 hours. Handout on Doxy-PEP given (to be set aside in envelope for pickup with labs). Clt aware of the unknowns that are being monitored with Doxy-PEP: effect to microbiome and drug resistance concerns. Recommend regular STI screening every 3 months Need 2 out of 3 Sections from A-C Section A) Problems (only need one from below) Section B) Data (need at least one of the following categories in this section) Category 1: (Choose three of the following): Order Unique tests Section C) Risk (any one of the following) Prescription drug management (this counts for the whole section) 01/05/2024 Encounter for HIV pre-exposure prophylaxis (ICD-10 - Z29.81) Need 2 out of 3 Sections from A-C Section A) Problems (only need one from below) Section B) Data (need at least one of the following categories in this section) Category 1: (Choose three of the following): Order Unique tests Section C) Risk (any one of the following) Prescription drug management (this counts for the whole section) 10/07/2023 Other problems related to lifestyle (ICD-10 - Z72.89) Need 2 out of 3 Sections from A-C Section A) Problems (only need one from below) Section B) Data (need at least one of the following categories in this section) Category 1: (Choose three of the following): Order Unique tests Section C) Risk (any one of the following) Prescription drug management (this counts for the whole section) 10/07/2023 Encounter for screening for infections with a predominantly sexual mode of transmission (ICD-10 - Z11.3) Need 2 out of 3 Sections from A-C Section A) Problems (only need one from below) Section B) Data (need at least one of the following categories in this section) Category 1: (Choose three of the following): Order Unique tests Section C) Risk (any one of the following) Prescription drug management (this counts for the whole section) 01/05/2024 Encounter for screening for infections with a predominantly sexual mode of transmission (ICD-10 - Z11.3) Need 2 out of 3 Sections from A-C Section A) Problems (only need one from below) Section B) Data (need at least one of the following categories in this section) Category 1: (Choose three of the following): Order Unique tests Section C) Risk (any one of the following) Prescription drug management (this counts for the whole section) 10/07/2023 Screening for other viral diseases (ICD-10 - Z11.59) Need 2 out of 3 Sections from A-C Section A) Problems (only need one from below) Section B) Data (need at least one of the following categories in this section) Category 1: (Choose three of the following): Order Unique tests Section C) Risk (any one of the following) Prescription drug management (this counts for the whole section) Plan Of Treatment No Information Insurance Providers Payer Name Payer Address Payer Phone Subscriber Number Group Number Insured Name Patient Relationship to Insured Coverage Start Date Coverage End Date [facility] 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
--- OUTSIDE RECORDS SUMMARY | 2024-07-20 17:57 | XMS_ITS ---
Author Organization [facility] Address [address] [place] [phone] Care Team Providers Care Tourist Agent Name Role Phone JESSA MADISON [phone] REASON FOR VISIT telehealth labs Medications Medication SIG (Take, Route, Frequency, Duration) [...] Male Encounters Encounter Location Date Provider Diagnosis [facility] [address] [place], [place] [id number] 04/18/2024 JESSA MADISON Plan Of Treatment No Information Progress Notes * Pedro MAYFIELDDOB:1995 (29 yo M)Acc No.[id number]:04/18/2024 LAB Patient:?LILIABIAGela GARCIAer Provider:?Jessa Madison NP :1995???Age:29 Y???Sex:Male Estuardo e:04/18/2024 Address:[address] [place] [address], [address], [place], [id number] Subjective: * Chief Complaints: * ???Telehealth labs * HPI: ???Visit Narrative:?Reason for the visit:?all labs collected.? * Medical History:? * Surgical History:? * Hospitalization/Major Diagno stic Procedure:? * Medications:?TakingTruvada 2 00-300 MG Tablet 1 tablet Orally Once a day Doxycycline Hyclate 100 MG Tablet 2 tablets Orally Take ideally within 24 hours but can be up to 72 hours after unprotected episode. No more than 1 dose in 24 hours Taking Truvada 200-300 MG Tablet 1 tablet Orally Once a day Taking Doxycycline Hyclate 100 MG Tablet 2 tablets Orally Take ideally within 24 hours but can be up to 72 hours after unprotected episode. No more than 1 dose in 24 hours Not-Taking/PRNcefTRIAXone Sodium 500 MG Solution Reconstituted as directed Injection Once Doxycycline Truvada 200-300 MG Tablet 1 tablet Orally Once a day Not-Taking/PRN cefTRIAXone Sodium 500 MG Solution Reconstituted as directed Injection Once Not-Taking/PRN Doxycycline Not-Taking/PRN Truvada 200-300 MG Tablet 1 tablet Orally Once a day Objective: * Vitals:? Assessment: Plan: * Treatment: * Procedure Codes:? * Billing Information: * Visit Code:? * Procedure Codes:? * Sign off status: Completed true * Provider:?Jessa Madison NP Date:? 024 Generated for Bernarda chapman/Mehnaz/Shahab on:?07/20/2024 05:57 PM EDT History and Physical Notes * HPI (History of Present Illness) Category Sub-Category Detail Notes Category Not es Visit Narrative Reason for the visit: all labs collect ed
== END 2024-07-20 15:03 | disposition home or self-care (01) ==
PROVIDERS: Visit Provider Nurse Practitioner Family
DX: Z13.9 Encounter for screening, unspecified (principal); J02.0 Streptococcal pharyngitis

== ENCOUNTER → 2024-07-20 14:15 | Outpatient (BNVA) | payer OTHER, SELFPAY | PROVIDERS: Visit Provider Nurse Practitioner Family | DX: J02.0 Streptococcal pharyngitis (principal) | CPT/HCPCS: 87880 ==

== ENCOUNTER 2024-12-05 14:44 | Outpatient (REF) | payer OTHER, SELFPAY ==
[2024-12-05 18:11] LABS: Hematocrit 42.6 % (42.0-52.0); Hemoglobin 14.9 g/dl (14.0-18.0); Mean Corpuscular HGB Conc 35.0 g/dl (31.0-36.0); Mean Corpuscular Hemoglobin 29.3 pg (27.0-33.0); Mean Corpuscular Volume 83.9 fL (80.0-98.0); NRBC Abs Auto 0.000 X10*3/uL (0.0-0.012); NRBC Pct Auto 0.0 /100WBC (0.0-0.2); Platelet Count 273 X10*3/uL (160-400); Red Blood Count 5.08 X10*6/uL (4.60-5.80); White Blood Count 8.5 X10*3/uL (4.8-10.8)
[2024-12-05 18:25] LABS: Hemoglobin A1C 133.0815 umol/L; Total Hemoglobin (HGBA1C) 3871.0066 umol/L
[2024-12-05 18:43] LABS: Microalbum/Creatinine Ratio Ur 4.5 ug/mg cr (<30)
[2024-12-05 18:45] LABS: Alanine Aminotransferase 19 U/L (0-40); Albumin Level 4.7 g/dL (3.5-5.0); Alkaline Phosphatase 66 U/L (39-117); Anion Gap 12 (12-20); Aspartate Amino Transferase 29 U/L (5-37); Blood Urea Nitrogen 12 mg/dL (9-16); Calcium 9.6 mg/dL (8.4-10.2); Carbon Dioxide 25 mmol/L (22-29); Chloride 109 mmol/L (96-108); Cholesterol 182 mg/dL (<200); Estimated Glomerular Filt Rate > 60; HDL Cholesterol 33 mg/dL (>40); Potassium 3.7 mmol/L (3.3-5.1); Sodium 142 mmol/L (135-145); Total Protein 7.4 g/dL (6.5-8.0); Triglycerides 238 mg/dL (<150)
[2024-12-05 19:06] LABS: Folate 7.5 ng/mL (> or = 4.0); Vitamin B12 330 pg/mL (200-900)
== END 2024-12-05 14:45 | disposition home or self-care (01) ==
LOC: HO.WFDLDS 14:44
PROVIDERS: PCP Nurse Practitioner Family; Visit Provider Nurse Practitioner Family
DX: Z00.00 Encounter for general adult medical examination without abnormal findings (principal); Z23 Encounter for immunization; Z13.1 Encounter for screening for diabetes mellitus; Z13.6 Encounter for screening for cardiovascular disorders; K64.8 Other hemorrhoids; M72.2 Plantar fascial fibromatosis; J45.909 Unspecified asthma, uncomplicated; A63.0 Anogenital (venereal) warts; F12.90 Cannabis use, unspecified, uncomplicated; Z72.0 Tobacco use; Z76.89 Persons encountering health services in other specified circumstances; Z86.59 Personal history of other mental and behavioral disorders; Z87.448 Personal history of other diseases of urinary system; Z87.442 Personal history of urinary calculi
CPT/HCPCS: 36415; 80053; 80061; 82043; 82306; 82570; 82607; 82746; 83036; 84443; 85027; 90471; 90715; 96127

== ENCOUNTER 2024-12-05 14:44 | Outpatient (AMB) | payer OTHER, SELFPAY ==
--- OUTSIDE RECORDS SUMMARY | 2024-07-17 13:15 | XMS_ITS ---
Author Organization [facility] Address [address] [place] [phone] Care Team Providers Care Car Escort Name Role Phone ALEJO MADISON Unavailable [phone] REASON FOR VISIT prep fu/sti testing Social History Sex Assigned At : Social History Observation Description Sex Assigned At Male Encounters Encounter Location Date Provider Diagnosis [place] [address] [place] [phone] 07/17/2024 ALEJO MADISON Plan Of Treatment Next Appt Details Provider Name:FELI MAYO, 04/2024 01:00:00 PM, [address] [place] [address], [id number], Progress Notes * Pedro MAYFIELDDOB:1995 (29 yo M)Acc No.[id number]:07/17/2024 Progress Notes Patient: Pedro BROWN Provider: Keturah Madison NP :1995 A ge:29 Y S ex:Male Date:07/17/2024 Address:[address] [place] [address], [address], [place], [id number] Subjective: * Chief Complaints: * 1 . Prep fu/sti testing. * Medical History: Objective: * Vitals: Assessment: Plan: * Treatment: * Billing Information: * Visit Code: * Procedure Codes: * Electronic signature of LAUREN MADISON NP on 12/05/2024 at 03:37 PM EDT Sign off status: Pending * Provider: Keturah Madison NP Date: 0 07/17/2024 Generated for Bernarda chapman/Mehnaz/Shabanaitting on: 0 12/05/2024 03:37 PM EDT
--- NOTE | 2024-12-05 14:46 | A.OFFPC_ITS ---
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 Required: No Allergies Sulfa (Sulfonamide Antibiotics) (SULFA (SULFONAMIDE ANTIBIOTICS)) Allergy (Unknown, Verified 12/05/24 14:57) UNKNOWN Medication List - Last Reconciled 12/05/24 by JOSE ANTONIO Pulido No Known Home Meds Tobacco use date assessed: 12/05/24 Dental Screening Dental Screen Date: 12/05/24 Did you have a dental visit in the last 12 months?: Yes Did you have a dental problem in the last 6 months where you did not have access to dental care?: No Was dental information given to patient?: Patient has dentist HPI HPI Comments History of Present Illness Details 29 y/o M with renal stones and hydroneph orosis, hx of opiod overdose 2021, obesity, anal warts, hx of STD in the past, family hx prostate ca (great grandfather moms side), hx of ADHD and JERED medicated in childhood Social: works at [employer]; Lives w/ brother Surgery: undescended testicles in childhood, circumcision revision Fhx: Mom with DJD; Dad alcoholism; 1 brother and 1 sister; pGM pacer; pGF d/t MVA; mGM alive; mGF with DM; maternal great grandfather with prostate CA Health Maintenance: Tdap 11/2024 [facility] wears glasses [facility] Here today to est care, for a CPE: Previous PCP: Dr Chatman then Peds Dr Bernard No records c/o hemorrhoids and anal warts. - Hemorrhoids present with fluctuating s everity, causing significant pain during bowel movements. - Anal warts identified; received Gardas [place] vaccine. Approximate contraction date one year prior. - Left hydronephrosis and renal stones n oted; no current symptoms reported. - Incidental opioid overdose history; cu rrently no opioid use. - Obesity (BMI 32) with previous weight loss via calorie reduction. - History of anxiety and depression feliciano ged without medication currently. Counseling in past; does not feel needs that currently - Previous chlamydia & gonorrhea infecti on; completed treatment. - active w/ [facility] - Chronic planter fasciitis in the right foot; managed with stretches and supportive footwear. - When gets sick, goes to lungs with s evere SOB and wheezing. Active nicotine vape and marijuana use; no asthma Dx. 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 - Substance Use: Uses marijuana and vape s nicotine - Exercise: Maintains an active lifestyl e through work - Nutrition: Practices calorie deficit f or weight management Health Maintenance - Gardasil vaccine administered recently - Tetanus and pertussis vaccine recommen ded for administration - Routine sexual health checks every thr ee months - Regular weight management efforts note d, including calorie deficit and increased physical activity Review of Systems - Gastrointestinal: Reports intermittent severe pain with hemorrhoids - Dermatological: Reports anal warts; [place] flor reports frequent cysts in the lobe of L ear responded well to doxy in the past. - Musculoskeletal: Reports plantar fasci itis in the right foot - Respiratory: Reports diminished capaci ty during respiratory illnesses - Psychiatric: Denies experiencing chron ic anxiety or depression Physical Exam General: Well developed, well nourished, in no acute distress. Appears stated age. Head: Normocephalic, atraumatic. Eyes: Pupils are equal, round and reactive to light and accommodation. Conjunctivae are clear. Vision grossly normal. Ears: TMs clear AU, EACS WNL. Nose: Patent, without discharge. Neck: Supple, no adenopathy or thyromegaly. Breast: Edu on SBE Lungs: Clear to auscultation, dim BLL. No rales, rhonchi or wheeze noted. Good air flow in all brody. H Heart: Regular rate and rhythm. No murmurs, click, rubs or gallops are noted. Abdomen: Bowel sounds present in all quadrants. The abdomen is soft, nontender, with no masses or organomegaly noted. No hernias are noted. : Deferred. Reviewed CARLOS & recommendations Pulses: Peripheral pulses are equal and palpable bilaterally. Extremities: No clubbing, cyanosis nor edema is noted. Neurologic: Gait and station normal. Cranial Nerves 2-12 intact. Motor strength grossly symmetrical and intact. No sensory loss. Balance normal. Skin: No rashes, ulcers, or lesions noted. Turgor is good. Skin color is good. Hair and nails are without abnormalities. Psych: Normal eye contact, affect and mood appropriate, and normal interactions. Patient is alert and appropriate to context. R Results Pending Discussion Notes During my discussion with the patient, we reviewed the management options for hemorrhoids and anal warts. I explained the potential need for evaluation by a colorectal surgeon to assess the possibility of hemorrhoid removal and to determine if wart removal can occur simultaneously. I highlighted the availability of analytic topical treatments or surgical excision if needed. The patient's ongoing plantar fasciitis was discussed, with further emphasis on stretching and supportive footwear for management. I advised the patient to obtain a tetanus booster shot and discussed smoking cessation's benefits. The patient consented to referrals for pulmonology and colorectal specialists for further evaluation. Patient was given time to ask questions. All questions were answered to their satisfaction. Assessment and Plan 1. Hemorrhoids - Referred to colorectal surgery for yoly luation and potential removal. 2. Anal Warts - Gardasil vaccine UTD; evaluate for rem oval during colorectal consult. - If not able, send me portal message an d i can refer to Uro or Derm 3. Respiratory Concerns - Referral to pulmonology for evaluation . - Vape and MJ cessation education 4. Obesity - Continue current management strategies . 5. Anxiety/ADHD/Depression - Monitored as per patient report; no ac tive treatment needed. Patient Instructions - Schedule the referred appointments wit h pulmonology and colorectal surgeons. - Utilize the patient portal for appoint ment requests and communication. - Follow advised dietary and physical ac tivity guidelines. - Get tetanus booster as discussed. - Continue sexual health follow-ups with [facility]. - RTO 1 year CPE, sooner PRN Consent Patient was informed and verbally consented to the use of an ambient scribe for clinic note documentation during this visit. Total time spent caring for the patient today was 20 minutes. This includes time spent before the visit reviewing the chart, time spent during the visit, and time spent after the visit on documentation, reviewing laboratory results, diagnostic imaging, medications, performing a medically necessary evaluation, counseling on diagnoses, care coordination, ordering appropriate tests, ordering appropriate medications, review of tests performed by other providers, reporting test results with the patient, communication with other healthcare providers. [facility] Medical History (Updated 08/12/25 @ 15:29 by Ginger Burgess, [facility]) Anxiety Chlamydia HPV (human papilloma virus) infection STD (sexually transmitted disease) GERD (gastroesophageal reflux disease) Undescended testicle Surgical History (Updated 12/05/24 @ 14:57 by Ondina Velazquez MA) No pertinent past surgical history Family History (Updated 12/05/24 @ 14:58 by Ondina Velazquez MA) Maternal Grandfather Diabetes Social History (Updated 12/05/24 @ 14:54 by Ondina Velazquez MA) Household Members: Other Household Members Other:: Brother Both parents involved: No Caregiver staying overnight: No Housing: Apartment Are you a primary interior plant caretaker to a significant other at home: No Do you presently have visiting nurse or other home services: No 75 years or older and lives alone: No Alcohol intake: current Alcohol intake frequency: a few times a month Patient Tobacco Use Status: Never used Tobacco e-Cigarette/Vaping Use: Never Used Second Hand Smoke Exposure: No service: No Current occupational status: employed 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 1. Little interest or pleasure in doing things: not at all 2. Feeling down, depressed, or hopeless: not at all 3. Trouble falling or staying asleep, or sleeping too much: several days 4. Feeling tired or having little energy: several days 5. Poor appetite or overeating: several days 6. Feeling bad about yourself - or that you are a failure or have let yourself or your family down: not at all 7. Trouble concentrating on things, such as reading the newspaper or watching television: not at all 8. Moving or speaking so slowly that other people could have noticed. Or the opposite - being so fidgety or restless that you have been moving around a lot more than usual: not at all 9. Thoughts that you would be better off or of hurting yourself in some way: not at all Total score: 3 Depression Screening Interpretation: Negative Depression Screening Done: Yes 85878 - PHQ-9 Billing: Yes Source: Developed by Drs. Walker EricLeena Kurt Kroenke and colleagues, with an educational vinicius from [employer]. Thrive Questionnaire Date Thrive assessed: 12/05/24 I am a: Patient What is your living situation today?: I have a steady place to live Within the past 12 months, did the food you bought not last and you didn't have the money to get more?: Never true Within the past 12 months, did you worry whether your food would run out before you got money to buy more?: Never true Do you have trouble paying for medicines?: No Do you have trouble getting transportation to medical appointments?: No Do you have trouble paying your heating and electricity bill?: No Do you have trouble taking care of your child, family member or friend?: No Do you have trouble with day-to-day activities such as bathing, preparing meals, shopping, managing finances, etc.?: No Are you currently unemployed and looking for a job?: No Are you interested in more education?: No Please select the resources that you would like help with: None Currently or been in a relationship where the following occur: I choose not to answer THRIVE Score: 0 AUDIT C Alcohol Use Questionnaire (AUDIT-C) 1. How often do you have a drink containing alcohol?: 2-4 times a month 2. How many drinks containing alcohol do you have on a typical day when you are drinking?: 5 or 6 3. How often do you have six or more drinks on one occasion?: Less than monthly Total Score: 5 Score Reviewed/Action Taken: Yes JERED-7 AMB Questionnaire JERED-7 Date JERED - 7 assessed: 12/05/24 Feeling nervous, anxious, or on edge: 1 = Several days Not being able to stop or control worryin = Not at all Worrying too much about different things: 1 = Several days Trouble relaxin = Not at all Being so restless that it is hard to sit still: 0 = Not at all Becoming easily annoyed or irritable: 0 = Not at all Feeling afraid as if something awful might happen: 0 = Not at all Total JERED-7 score (0-4 normal; 5-9 mild; 10-14 moderate; 15-21 severe): 2 Source: Developed by Leena Garcia Kurt Kroenke and colleagues, with an educational vinicius from [employer]. JERED-7 Assessment Billing JERED-7 Assessment Tool: JERED-7 Assessment 03111 Physical exam (Primary Care) Vital Signs: Last Vital Signs Temp 97.1 F 12/05/24 14:52 Pulse 66 12/05/24 14:52 Resp 12 12/05/24 14:52 BP 102/68 12/05/24 14:52 Pulse Ox 98 12/05/24 14:52 Oxygen Delivery Method Room Air 12/05/24 14:52 BMI result Body Mass Index 32.0 BMI Assessment/Plan discussion: High BMI High, discussed plan: lifestyle Tobacco/Smoking Status: Tobacco use Status Tobacco use date assessed 12/05/24 12/05/24 14:51 Patient Tobacco Use Status Never used Tobacco 12/05/24 14:54 e-Cigarette/Vaping Use Never Used 12/05/24 14:54 Are you ready to quit: No Tobacco cessation counseling provided: Yes Items discussed: Nicotine replacement, QuitWorks and Other Relapse Prevention: discussed the importance of a supportive environment, discussed extending NRT, discussed negative mood or depression after quitting, weight gain after smoking is common and discussed dietary, exercise and/or lifestyle changes Number of minutes spent counselin CPT code: 38582 - 4-10 Minutes PHQ-9: PHQ-9 Score PHQ-9: Total score 3 12/05/24 15:07 Depression Screening Interpretation: Negative Thrive Assessment: Date of Thrive Assessment Date Thrive assessed 12/05/24 12/05/24 14:47 Currently or been in a relationship where the following occur: I choose not to answer Immunizations Boostrix Tdap 2.5 Lf unit-8 mcg-5 Lf/0.5 mL intramuscular syringe Performing Provider: MISA Pulido Performing Location: [facility] [facility] Administered by: Ondina Velazquez MA on 12/05/24 15:32 Dose Route Admin Location Dispensed Lot Number Expiration Date [facility] Manuscripts Curator 0.5 mL IM Left Deltoid 0.5 mL [id number] 02/13/27 06129-366-42 [place] Total Dispensed Waste 0.5 mL 0 % 2 VIS Given Date VIS Provided VIS Publication Date 12/05/24 Single Vaccine 20 Eligibility Eligibility Date Funding Source Not [facility] Eligible 12/05/24 Private Coding Level of Care Code New Pt Level 3 (64023) New Pt Prev Care 18-39yr(33386 Diagnoses Encounter to establish care with new provider Z76.89 Hx of attention deficit hyperactivity disorder Z86.59 Hx of major depression Z86.59 History of anxiety Z86.59 Hx of hydronephrosis Z87.448 History of renal stone Z87.442 Need for Tdap vaccination Z23 Other hemorrhoids K64.8 Hemorrhoid type: other Plantar fasciitis, right M72.2 Reactive airway disease without complication, unspecified asthma severity, unspecified whether persistent J45.909 Asthma complication type: uncomplicated Asthma persistence: unspecified Asthma severity: unspecified severity Marihuana user F12.90 Current nicotine vapor product user on some days Z72.0 Anal mucosal wart due to human papillomavirus (HPV) A63.0 Encounter for general adult medical examination without abnormal findings Z00.00 Additional Codes JERED-7 Assessment Billing - JERED-7 Assessment Tool: JERED-7 Assessment 59211 ([id number]) PHQ-9 - 54645 - PHQ-9 Billing: Yes ([id number]) Vital Signs *Quality* - CPT code: 14831 - 4-10 Minutes ([id number]) Assessment & Plan Assessment & Plan (1) Encounter to establish care with new provider: Code(s): Z76.89 - Persons encountering health services in other specified circumstances (2) Hx of attention deficit hyperactivity disorder: Code(s): Z86.59 - Personal history of other mental and behavioral disorders Category: Medical (3) Hx of major depression: Code(s): Z86.59 - Personal history of other mental and behavioral disorders Category: Medical (4) History of anxiety: Code(s): Z86.59 - Personal history of other mental and behavioral disorders Category: Medical (5) Hx of hydronephrosis: Onset Date: ~2020 Comment: LEFT D/T RENAL STONES Code(s): Z87.448 - Personal history of other diseases of urinary system Category: Medical (6) History of renal stone: Onset Date: ~2020 Code(s): Z87.442 - Personal history of urinary calculi Category: Medical (7) Need for Tdap vaccination: Code(s): Z23 - Encounter for immunization Category: Medical (8) Hemorrhoids: Code(s): K64.9 - Unspecified hemorrhoids Category: Medical Qualifiers: Hemorrhoid type: other Qualified Code(s): K64.8 - Other hemorrhoids (9) Plantar fasciitis, right: Code(s): M72.2 - Plantar fascial fibromatosis Category: Medical (10) Reactive airway disease: Code(s): J45.909 - Unspecified asthma, uncomplicated Category: Medical Qualifiers: Asthma complication type: uncomplicated Asthma persistence: unspecified Asthma severity: unspecified severity Qualified Code(s): J45.909 - Unspecified asthma, uncomplicated (11) Marihuana user: Comment: Marijuana: Natural = Safe, Right? Marijuana is readily available to use in many states in the [facility]. Understanding the possible risks of use is important to ensure the safety. No matter how you use marijuana (smoke it, eat it, or apply to your skin), it may cause problems with both short term and longterm use How marijuana affects your BRAIN: Potential effects from Short Term Use Poor focus, memory and reaction time Difficulty with problem solving Hallucinations, paranoia, anxiety Potential effects from Research And Development Tester Use Memory problems and trouble learning new things Depression, hallucinations, paranoia, anxiety, worsening PTSD symptoms addiction Brain. It is not safe to drive while on marijuana. It makes it hard to pocket assembler distance, concentrate, react quickly to signals and sounds, be alert and coordinated. If alcohol is combined, this risk is even higher! In regular users, some of the effects from longterm use may last for days or even weeks after stopping marijuana. How inhaling marijuana affects your LUNGS: Inhaling harmful chemicals Gases Small particles Carcinogens (toxins linked to cancer) Breathing problems similar to tobacco smokers Daily cough with mucus Difficulty breathing Lung infections (bronchitis, pneumonia) Lungs How marijuana affects your HEART: Increases risk of heart attack Within the first hour of smoking Increases heart rate 20?100% increase after smoking Increase lasts up to three hours Changes in heart rhythm Feels like your heart skips a beat, or is fluttering, or beating too fast or too slow Heart Is it SAFE to use marijuana with other medications? A combination that can be concerning is the use of opioids and/or benzodiazepines with marijuana. Opioids + Benzodiazepines + Marijuana: Drowsiness: All three can cause drowsiness. Reaction time: All three can reduce reaction time. Do not drive or operate machinery. Overdose: Opioids and Benzodiazepines can cause reduced breathing and in some cases, breathing can stop and a person can . Marijuana containing higher levels of THC may cause difficulty with thinking and memory and this could result in medication errors where extra doses of opioids, benzodiazepines, or other medications may be taken. What is the harm? Example of Opioids Morphine (MS Contin?, Pauline?) Oxycodone (Percocet?, OxyContin?) Hydrocodone (Vicodin?, [place]?) Fentanyl (Duragesic?) Methadone Heroin Example of Benzodiazepines Lorazepam (Ativan?) Diazepam (Valium?) Alprazolam (Xanax?) Clonazepam (Klonopin?) If you have specific questions about the safety of using marijuana with other medications, please contact your provider or pharmacist. Some marijuana users can become addicted! You can have problems with marijuana withdrawal. You may have withdrawal symptoms the day after you stop using. These can get worse 2 to 3 days after using and can take 1 to 2 weeks or longer to go away. Recovery and Treatment Contact your provider or health care team if you are having concerns about your marijuana use or to learn more about available treatment services. The marijuana plant is not an FDA-approved medicine: The U.S. Food and Drug Administration (FDA) has not approved the marijuana plant as a medication due to lack of studies on the risks and benefits. Marijuana contains over 100 chemical substances known as cannabinoids. Some of these, like tetrahydrocannabinol (THC), have mind altering effects and can be intoxicating. Cannabidiol (CBD), another cannabinoid, does not cause the same ?high? users of THC experience. THC has been studied for the treatment of several conditions, including nausea and increasing appetite. CBD is similarly being studied for a number of conditions, including childhood epilepsy and inflammation. What is different between the marijuana product I get from the marijuana shop and a prescription from the pharmacy? The right dose of any medicine is important. A specific dose of THC is approved to treat nausea, but high doses of THC may cause vomiting. The ingredients in a medicine must be measured and stay the same from one dose to the next. The marijuana plant contains unknown ingredients that change from plant to plant. This makes it hard to control the ?dose? of marijuana needed to treat a condition and use it in the same way we use other medicines. Future studies are ongoing to establish the role of the marijuana plant and the cannabinoids found in the plant for treatment of medical conditions. If you have questions about using a marijuana product for a medical condition, please discuss this with your medical provider to determine the most appropriate treatment for you. [place] Providers are not able to prescribe marijuana products. Information in this document was compiled by the [facility] Excellence in Substance Abuse treatment and Education (CESTE). It contains information from factsheets by the [place] on Drug Abuse (www.drugabuse.gov) and presentation by Blaine Spicer, Blaine Underwood, & Rony Spencer (2010) entitled ?What providers need to know about cannabis use in Veterans with mental health conditions: Research, policy, practice,? and an additional reference: Chantelle Saleem M.D., Cordell Hammonds, Ph.D., Gopi Gaines M.D., and Merlene Durand, Ph.D: Adverse Effects of Marijuana. N Engl J Med 2014; 370:7225-8890, September 28, 2013 DOI: 10.1056/PSANzb1400631. [facility] Academic Detailing Service Code(s): F12.90 - Cannabis use, unspecified, uncomplicated Category: Medical (12) Current nicotine vapor product user on some days: Comment: Smoking Cessation How to Quit There are a lot of ways to quit smoking and many resources to help you. Family members, friends, and co-workers may be supportive or encouraging, but to be successful the desire and commitment to quit must be your own. Most people who have been able to successfully quit smoking made at least one unsuccessful attempt in the past. Try not to view past attempts to quit as failures, but rather as learning experiences. Stopping smoking or using smokeless tobacco is difficult, but anyone can do it. Know the symptoms to expect when you stop. Common symptoms include: ? An intense craving for nicotine ? Anxiety, tension, restlessness, frustration, or impatience ? Difficulty concentrating ? Drowsiness or trouble sleeping, as well as bad dreams and nightmares ? Drowsiness and trouble sleeping ? Headaches ? Increased appetite and weight gain ? Irritability or depression How severe your symptoms are depends on how long you smoked and how many cigarettes you smoked each day. Feel ready to quit? ? First and foremost, set a quit date and quit completely on that day. Before your quit date, you may begin reducing your cigarette use. But remember, there is no safe level of cigarette smoking. ? List the reasons why you want to quit. Include both short- and long-term benefits. ? Identify the times you are most likely to smoke. For example, do you tend to smoke when feeling stressed or down? When out at night with friends? While drinking coffee or alcohol? When bored? While driving? Right after a meal or sex? During a work break? While watching TV or playing cards? When you are with other smokers? ? Let all of your friends, family, and co-workers know of your plan to stop smoking and your quit date. Just being aware that they know what you're going through can be helpful, especially when you are grumpy. ? Get rid of all your cigarettes just before the quit date, and clean out anything that smells like smoke, such as clothes and furniture. Make a plan about what you will do instead of smoking at those times when you are most likely to smoke. ? Be as specific as possible. For example, drink tea instead of coffee -- tea may not trigger the desire for a cigarette. Or, take a walk when you feel stressed. ? Remove ashtrays and cigarettes from the car. Place pretzels or hard candies there instead. Pretend-smoke with a straw. ? Find activities that focus your hands and mind but are not taxing or fattening. Computer games, solitaire, knitting, sewing, and crossword puzzles may help. ? If you normally smoke after eating, find other ways to end a meal. Play a tape or CD, eat a piece of fruit, get up and make a phone call, or take a walk (a good distraction that also gonzales calories). Make other changes in your lifestyle. ? Change your daily schedule and habits. Eat at different times or eat several small meals instead of three large ones. Sit in a different chair or even a different room. ? Satisfy your oral habits by eating celery or other low-calorie snack, chewing sugarless gum, or sucking on a cinnamon stick. ? Go to public places and restaurants where smoking is prohibited or restricted. ? Eat regular meals and don't eat too much candy or sweet things. ? Get more exercise. Take walks or ride a bike. Exercise helps relieve the urge to smoke. Set short-term quitting goals and reward yourself when you meet them. ? Every day, put the money you normally spend on cigarettes in a jar. Then buy something pleasurable after a period of time. ? Try not to think about all the days ahead you will need to avoid smoking. Take it one day at a time. ? Even one puff or one cigarette will make your desire for more cigarettes even stronger. However, it is normal to make mistakes. So even if you have one cigarette, you don't need to take the next one. Other tips to help you quit smoking and stick to it: ? Enroll in a smoking cessation program (hospitals, health departments, community centers, and work sites often offer programs). Learn about self-hypnosis or other techniques. ? Ask your health care provider about prescription medications that are safe and appropriate for you. ? Find out about nicotine patches, gum, and sprays. The [employer]'s web site -- www.cancer.org -- is an excellent resource for smokers who are trying to quit, and the [employer] [place] can help some smokers kick the habit. Above all, don't get discouraged if you aren't able to quit smoking the first time. Nicotine addiction is a hard habit to break. Try something different next time. Develop new strategies, and try again. Many people take several attempts to finally kick the habit. Code(s): Z72.0 - Tobacco use Category: Social Hx (13) Anal mucosal wart due to human papillomavirus (HPV): Code(s): A63.0 - Anogenital (venereal) warts Category: Medical (14) Encounter for general adult medical examination without abnormal findings: Onset Date: ~12/05/24 Code(s): Z00.00 - Encounter for general adult medical examination without abnormal findings Category: Medical Plan . Orders: Orders Hemoglobin A1c Today Z00.00 - Encounter for general adult medical examination without abnormal findings TSH reflex Free T4 Today Z00.00 - Encounter for general adult medical examination without abnormal findings Vitamin D 25-OH Total Today Z00.00 - Encounter for general adult medical examination without abnormal findings TDaP Immunization Today Z23 - Encounter for immunization Complete Blood Count no Diff Today Z00.00 - Encounter for general adult medical examination without abnormal findings Comprehensive Met. Panel Today Z00.00 - Encounter for general adult medical examination without abnormal findings Lipid Panel Today Z00.00 - Encounter for general adult medical examination without abnormal findings Microalbumin, Random (w Creat) Today Z00.00 - Encounter for general adult medical examination without abnormal findings Vitamin B12 and Folate Today Z00.00 - Encounter for general adult medical examination without abnormal findings Referrals Pulmonology Referral F12.90 - Cannabis use, unspecified, uncomplicated, J45.909 - Unspecified asthma, uncomplicated, Z72.0 - Tobacco use Colon & Rectal Referral A63.0 - Anogenital (venereal) warts, K64.9 - Unspecified hemorrhoids Medications: Discontinued penicillin V potassium Discontinued Reason: Patient Completed Course 500 mg PO TID 10 days 30 tabs 0RF J02.0 - Streptococcal pharyngitis prednisone Discontinued Reason: Patient Completed Course 50 mg PO DAILY 5 days 5 tabs 0RF J02.0 - Streptococcal pharyngitis acetaminophen Discontinued Reason: Patient Completed Course 1,000 mg (2 x 500 mg) PO Q6H PRN 60 caps 0RF pain J02.0 - Streptococcal pharyngitis Patient Instructions: Health screenings for men You should visit your health care provider regularly, even if you feel healthy. The purpose of these visits is to: Screen for medical issues Assess your risk for future medical problems Encourage a healthy lifestyle Update vaccinations and other preventive care services Help you get to know your provider in case of an illness Information Even if you feel fine, you should still see your provider for regular checkups. These visits can help you avoid problems in the future. For example, the only way to find out if you have high blood pressure is to have it checked regularly. High blood sugar and high cholesterol level also may not have any symptoms in the early stages. Simple blood tests can check for these conditions. There are specific times when you should see your provider or receive specific health screenings. The [place] Preventive Services Task Force publishes a list of recommended screenings. Below are screening guidelines for men ages 40 to 64. BLOOD PRESSURE SCREENING Have your blood pressure checked at least once every year. Watch for blood pressure screenings in your area. Ask your provider if you can stop in to have your blood pressure checked. Ask your provider if you need your blood pressure checked more often if: You have diabetes, heart disease, kidney problems, or are overweight or have certain other health conditions You have a first-degree relative with high blood pressure You are Black Your blood pressure top number is from 120 to 129 mm Hg, or the bottom number is from 70 to 79 mm Hg If the top number is 130 mm Hg or greater or the bottom number is 80 mm Hg or greater, this is considered stage 1 hypertension. Schedule an appointment with your provider to learn how you can lower your blood pressure. Effects of age on blood pressure CHOLESTEROL SCREENING Cholesterol screening should begin at age 35 for men with no known risk factors for coronary heart disease. Repeat cholesterol screening should take place: Every 5 years for men with normal cholesterol levels More often if changes occur in lifestyle (including weight gain and diet) More often if you have diabetes, heart disease, kidney problems, or certain other conditions COLORECTAL CANCER SCREENING If you are under age 45, talk to your provider about getting screened. You may need to be screened if you have a strong family history of colon cancer or polyps. Screening may also be considered if you have risk factors such as a history of inflammatory bowel disease or polyps. If you are age 45 to 75, you should be screened for colorectal cancer. There are several screening tests available: A stool-based fecal occult blood (gFOBT) or fecal immunochemical test (FIT) every year A stool sDNA test every 1 to 3 years Flexible sigmoidoscopy every 5 years or every 10 years with stool testing FIT done every year CT colonography (virtual colonoscopy) every 5 years Colonoscopy every 10 years You may need a colonoscopy more often if you have risk factors for colorectal cancer, such as: Ulcerative colitis A personal or family history of colorectal cancer A history of growths in your colon called adenomatous polyps DENTAL EXAM Go to the dentist once or twice every year for an exam and cleaning. Your dentist will evaluate if you have a need for more frequent visits. DIABETES SCREENING All adults who do not have risk factors for diabetes should be screened starting at age 35 and repeated every 3 years. If you have other risk factors for diabetes, such as a first degree relative with diabetes, overweight or obesity, high blood pressure, prediabetes, or a history of heart disease, you may be tested more often. If you are overweight and have other risk factors, such as high blood pressure and are planning to become , screening is recommended. EYE EXAM Have an eye exam every 2 to 4 years ages 40 to 54 and every 1 to 3 years ages 55 to 64. Your provider may recommend more frequent eye exams if you have vision problems or glaucoma risk. Have an eye exam that includes an examination of your retina (back of your eye) at least every year if you have diabetes. IMMUNIZATIONS Commonly needed vaccines include: Flu shot: get one every year COVID-19 vaccine: ask your provider what is best for you Tetanus-diphtheria and acellular pertussis (Tdap) vaccine: have as one of your tetanus-diphtheria vaccines if you did not receive it as an adolescent Tetanus-diphtheria: have a booster (or Tdap) every 10 years Varicella vaccine: receive 2 doses if you never had chickenpox or the varicella vaccine and were born in 1979 or after Hepatitis B vaccine: receive 2, 3, or 4 doses, depending on your exact circumstances, if you did not receive these as a child or adolescent, until age 59 Shingles (herpes zoster) vaccine: at or after age 50 Ask your provider if you should receive other immunizations, especially if you have certain medical conditions, such as diabetes or are at increased risk for some diseases such as pneumonia. INFECTIOUS DISEASE SCREENING Screening for hepatitis C: all adults ages 18 to 79 should get a one-time test for hepatitis C. Screening for human immunodeficiency virus (HIV): all people ages 15 to 65 should get a one-time test for HIV. Depending on your lifestyle and medical history, you may need to be screened for infections such as syphilis, chlamydia, and other infections. LUNG CANCER SCREENING You should have an annual screening for lung cancer with low-dose computed tomography (LDCT) if: You are age 50 to 80 years AND You have a 20 pack-year smoking history AND You currently smoke or have quit within the past 15 years OSTEOPOROSIS SCREENING If you are age 50 to 64 and have risk factors for osteoporosis, you should discuss screening with your provider. Risk factors can include long-term steroid use, low body weight, smoking, heavy alcohol use, having a fracture after age 50, or a family history of hip fracture or osteoporosis. Osteoporosis PHYSICAL EXAM All adults should visit their provider from time to time, even if they are healthy. The purpose of these visits is to: Screen for diseases Assess risk of future medical problems Encourage a healthy lifestyle Update vaccinations and other preventive care services Maintain a relationship with a provider in case of an illness Your height, weight, and body mass index (BMI) should be checked at every exam. During your exam, your provider may ask you about: Depression and anxiety Diet and exercise Alcohol and tobacco use Safety, such as use of seat belts and smoke detectors Your medicines and risk for interactions PROSTATE CANCER SCREENING If you're 55 through 69 years old, before having the test, talk to your provider about the pros and cons of having a PSA test. Ask about: Whether screening decreases your chance of dying from prostate cancer. Whether there is any harm from prostate cancer screening, such as side effects from testing or overtreatment of cancer when discovered. Whether you have a higher risk of prostate cancer than others. If you are age 55 or younger, screening is not generally recommended. You should talk with your provider about if you have a higher risk for prostate cancer. Risk factors include: Having a family history of prostate cancer (especially a brother or father) Being If you choose to be tested, the PSA blood test is repeated over time (yearly or less often), though the best frequency is not known. Prostate examinations are no longer routinely done on men with no symptoms. Prostate cancer SKIN EXAM Your provider may check your skin for signs of skin cancer, especially if you're at high risk. People at high risk include those who have had skin cancer before, have close relatives with skin cancer, or have a weakened immune system. TESTICULAR EXAM The US Preventive Services Task Force (USPSTF) now recommends against performing testicular self-exams. Doing testicular self-exams has been shown to have little to no benefit. Walk-In Care (Urgent Care): We Make it Easy Walk-in for urgent medical issues such as: ? Seasonal Allergies ? Insect Bites ? Cough ? Diarrhea ? Acute Asthma Attacks ? Back, Knee or Joint Pain ? Ear Infection ? Fever without a Rash ? Headaches ? Nausea ? Proberta Eye, Rash or Skin Irritation ? Sore Throat ? Sports Physicals ? Vomiting Most insurances are accepted. Patients do not need to be part of the [facility] to seek care at the walk-in clinic. Locations [address], [place] [address] ? [phone] [facility] in [place] provides services to ages 18 and over. Open Wednesday-Wednesday: 8 a.m. to 5 p.m. and Wednesday: 9 a.m. to 3 p.m.* *Hours may vary due to staffing availability. To confirm Walk-In Care hours in [place], please call [phone]. [address] [place] [address] ? [phone] [facility] in [place] provides services to ages 12 and over. Open Wednesday-Wednesday: 8 a.m. to 5 p.m. Hours may vary due to staffing availability. To confirm Walk-In Care hours in [place], please call [phone]. LABORATORY SERVICES: [facility] Lab ? Primary Location [address] [place] [address] Wednesday through Wednesday 6:00 AM ? 5:00 PM Wednesday 7:00 AM ? 11:00 AM* [phone] The [facility] Lab is centrally located near the front entrance of the [facility] for easy outpatient access. Convenient parking is provided for outpatients. *Hours may vary due to staffing availability. To confirm Laboratory hours for any location, please call [phone]. Offsite Location For your convenience, we offer offsite laboratory draw stations at the following locations: [address] [place] [address] ? [address], [address] Wednesday through Wednesday 7:30 AM ? 1:00 PM* [phone] *Hours may vary due to staffing availability. To confirm Laboratory hours for any location, please call [phone]. [place] ? [address] Wednesday through Wednesday 6:00 AM ? 3:30 PM* Wednesday 6:30 AM ? 3 PM* [phone] *Hours may vary due to staffing availability. To confirm Laboratory hours for a pr location, please call [phone] [place] [address] Wednesday through Wednesday 7:30 AM ? 4:00 PM* [phone] *Hours may vary due to staffing availability. To confirm Laboratory hours for any location, please call [phone] [place] [address] Wednesday through 9:00 AM ? 4:00 PM* *Hours may vary due to staffing availability. To confirm Laboratory hours for any location, please call [phone]. Appointments are not necessary. Walk-ins are welcome. Like all the departments throughout the [facility], our Lab undergoes frequent reviews to ensure the quality and accuracy of test results, and our staff takes special pride in its status as a nationally accredited facility. Patient Portal: ONE PATIENT. ONE RECORD. BETTER CARE. [facility] has a fully integrated, cutting- edge mobile electronic health information system that has revolutionized the way we care for our patients and manage our organization. This system improves communication and coordination enabling us to provide safe, higher-quality care, and an overall positive experience for staff and patients. Our first priority, as always, is to deliver the highest quality care possible. The system is running in the background supporting that priority. This portal is for all [facility] and [facility] services and practices. If you are experiencing any technical difficulties with enrolling or logging into the Patient Portal please complete the [facility] Patient Portal Technical Support Form. [facility] now offers a new secure on-line interactive tool for patients to review their health information ? ?Patient Portal. This interactive web portal will enable patients and their families to take an active role in their care by providing easy, secure access to their health information via the internet. The Patient Portal provides patients with instant access to their health information, including laboratory results, medications, allergies, demographic information, visit history, and more. In addition to managing their own care, parents and health care proxies with authorized consent will appreciate the ability to access the records of those individuals for whom they provide care. Please note: if you wish to gain access (Proxy) to another patient?s portal, you will be required to come to the Medical Records Department in person at [facility]. Both the patient giving proxy access and the proxy will need to provide photo identification and complete the appropriate authorization. The Patient Portal also allows track their appointments online. The [facility] Patient Portal also saves patients time by allowing them to submit updates to their demographic and contact information prior to their visits. Portal email notifications will also alert patients to any new activity on their portal, such as test results and new appointments. In order to initially enroll in the [facility] Patient Portal, you will need to enter some required information including the following: * your [facility] Medical Record number * your personal home email address * name * date of Please note: In order to enroll in the [facility] Patient Portal, we need to have your email address on file in your electronic medical record. ?The email address needs to be specific for one person (yourself) in order for your Portal enrollment to be successful. ?You can update your email address in person with our Registration staff when you are registering for a hospital visit. ?Otherwise, you will need to come to the Health Information Management (Medical Records) Department at [facility]. ?We are open from Wednesday ? Wednesday from 7:30 a.m. ? 4:30 p.m. ?You will be required to present a photo id. Once you have successfully enrolled in the Patient Portal, you will receive a one-time user id and password for the Portal, sent to your email address. ?This will allow you to log into the Patient Portal within 99 hrs and reset your own logon id and password, and define personal security questions. ?Once your permanent login and password have been set, you can log into the [facility] Patient Portal at any time via the blue button above or from the Portal Logon button on any page of the [facility] website. [facility] and [facility] encourage all of our patients to enroll in Patient Portal as it presents a valuable opportunity for patients and their families to actively participate in their care and stay healthy Welcome to [facility]. ?We look forward to working with you.
[2024-12-05 14:52] VITALS: BP 102/68; PULSE 66; RESP 12; TEMP 36.2; O2SAT 98; BMI 32.0
== END 2024-12-05 15:34 | disposition home or self-care (01) ==
LOC: HO.HMCFM 14:45
PROVIDERS: PCP Nurse Practitioner Family; Visit Provider Nurse Practitioner Family
DX: Z00.00 Encounter for general adult medical examination without abnormal findings (principal); M72.2 Plantar fascial fibromatosis; J45.909 Unspecified asthma, uncomplicated; K64.8 Other hemorrhoids; Z76.89 Persons encountering health services in other specified circumstances; Z86.59 Personal history of other mental and behavioral disorders; Z87.448 Personal history of other diseases of urinary system; Z72.0 Tobacco use; Z87.442 Personal history of urinary calculi; Z23 Encounter for immunization; F12.90 Cannabis use, unspecified, uncomplicated; A63.0 Anogenital (venereal) warts

== ENCOUNTER 2024-12-21 08:41 | Outpatient (AMB) | payer OTHER, SELFPAY ==
--- OUTSIDE RECORDS SUMMARY | 2024-07-17 13:15 | XMS_ITS ---
Author Organization [facility] Address [address] [place] [phone] Care Team Providers Care Psych Social Worker Name Role Phone ALEJO MADISON Unavailable [phone] REASON FOR VISIT prep fu/sti testing Social History Sex Assigned At : Social History Observation Description Sex Assigned At Male Encounters Encounter Location Date Provider Diagnosis [place] [address] [place] [phone] 07/17/2024 ALEJO MADISON Plan Of Treatment Next Appt Details Provider Name:FELI MAYO, 04/2024 01:00:00 PM, [address] [place] [address], [id number], Progress Notes * CHAPARROPedroDOB:1995 (29 yo M)Acc No.[id number]:07/17/2024 Progress Notes Patient: Pedro Lara Provider: Keturah Madison NP :1995 A ge:29 Y S ex:Male Date:07/17/2024 Address:[address] [place] [address], [address], [id number] Subjective: * Chief Complaints: * P rep fu/sti testing * Electronic signature of LAUREN MADISON NP on 12/21/2024 at 09:23 AM EDT Sign off status: Pending * Provider: Keturah Madison NP Date: 07/17/2024 Generated for Printi ng/Faxing/eTransmitting on: 12/21/2024 09:23 AM EDT
--- NOTE | 2024-12-21 08:45 | MHC.OFFVIS ---
Vital Signs 12/21/24 08:52 Height 5 ft 6.5 in Weight 191 lb BMI 30.4 BP 142/77 H Blood Pressure Location Rt brachial Position Sitting Pulse 76 Intake Visit Reasons: Anogenital (venereal) warts Intake Note: Patient referred by pcp Ginger REVELES for evaluation and treatment of anogenital warts, hemorrhoids. Patient c/o: external hemorrhoids are painful, agonizing, bleeding. Shuttle Threader Required: No Accompanied by: Self / Same As Patient Allergies Sulfa (Sulfonamide Antibiotics) (SULFA (SULFONAMIDE ANTIBIOTICS)) Allergy (Unknown, Verified 12/21/24 08:50) UNKNOWN Medication List - Last Reconciled 12/21/24 by Jonathan Valencia MD No Known Home Meds HPI HPI Anogenital (venereal) warts: Details: 29-year-old male referred for anal warts. He says that he was told he had anal warts sometime last year. He was started on Gardasil. He thinks that the anal warts have improved He also says that he has hemorrhoids and complains of episodes of swelling and pain with this hemorrhoids. He denies significant bleeding. He denies constipation. He admits to anoreceptive intercourse. He says that he had multiple partners in the past and had unprotected sex. He says that he has had no intercourse for a few months now because of his anal pain. [facility] Medical History (Updated 12/21/24 @ 09:07 by Jonathan Valencia MD) Mixed internal and external hemorrhoid Condyloma acuminatum of anus Male circumcision Anxiety Chlamydia HPV (human papilloma virus) infection STD (sexually transmitted disease) GERD (gastroesophageal reflux disease) Undescended testicle Surgical History No pertinent past surgical history Family History Maternal Grandfather Diabetes Social History Household Members: Other Household Members Other:: Brother Both parents involved: No Caregiver staying overnight: No Housing: Apartment Are you a primary outdoor emergency care technician to a significant other at home: No Do you presently have visiting nurse or other home services: No 75 years or older and lives alone: No Alcohol intake: current Alcohol intake frequency: a few times a month Patient Tobacco Use Status: Never used Tobacco Tobacco use type: Smokeless Tobacco e-Cigarette/Vaping Use: Never Used Second Hand Smoke Exposure: No service: No Current occupational status: employed 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 Cognitive needs: No Hearing needs: No Vision needs: Yes (wear glasses) Review of Systems Const Denies chills and Denies fever(s) Card Denies chest pain, Denies dyspnea and Denies dyspnea on exertion Resp Denies cough, Denies dyspnea and Denies dyspnea on exertion GI Denies hematochezia and Denies change in bowel habits Denies hematuria and Denies difficulty urinating Musc Denies back pain and Denies limited range of motion Neuro Denies focal weakness and Denies convulsions Psych Denies depression and Denies mood swings Physical Exam Const General: comfortable and no acute distress Orientation/consciousness: patient oriented x3 Neck Neck: Yes no lymphadenopathy Resp Auscultation: clear to auscultation bilaterally Cardio Rhythm: regular rhythm GI Other: Rectal exam shows multiple small, edematous lesions on both the left and right side in the perianal area, 2-4 mm in size Palpation (GI): Soft to palpation, nontender and no guarding Neuro General: patient oriented x3 Office Procedures Anoscopy He was in kneeling aissatou-knife position. The anoscope was gently inserted. A full examination of the anal canal was done. There were no exam of the lesions in the anal canal. There was no fissure or ulceration. There was an internal/external hemorrhoidal column which appears to move moderate-sized on the left posterior area. There was no bleeding. There were no hypertonicity of the sphincter. There was no induration. [id number] Assessment & Plan Assessment & Plan (1) Condyloma acuminatum of anus: Code(s): A63.0 - Anogenital (venereal) warts Category: Medical Plan: He has small, but multiple condylomatous lesions in the perianal area. He wants this removed. I explained the technique of exam under anesthesia, excision and fulguration of these condylomatous lesions. He also wants to proceed with hemorrhoidectomy as he complains of frequent pain, swelling and discomfort with his internal external hemorrhoids. I reviewed with him the technique of these procedures. I explained the risks including but not limited to bleeding, infections, postop pain, as well as the benefits and alternatives. I described to him what to expect postoperatively He says he understands and wants to proceed. (2) Mixed internal and external hemorrhoid: Code(s): K64.8 - Other hemorrhoids; K64.4 - Residual hemorrhoidal skin tags Category: Medical Plan He complains of significant pain and swelling episodes with his hemorrhoids. He wants to proceed with the appendectomy as well. This will be done along with the exam under anesthesia and excision of his condylomatous lesions. Coding Level of Care Code New Pt Level 3 (16813) Diagnoses Condyloma acuminatum of anus A63.0 Mixed internal and external hemorrhoid K64.8; K64.4 CPT Codes Details - CPT: 46650-[id number] ([id number])
[2024-12-21 08:52] VITALS: BP 142/77; PULSE 76; BMI 30.4
--- OUTSIDE RECORDS SUMMARY | 2024-12-21 09:23 | XMS_ITS | Patient Health Record ---
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 Rough Name Role Phone CHRISTINEPerla ALEJO Unavailable [phone] FELI MAYO Unavailable [phone] Allergies Allergen (clinical drug ingredient) Drug/Non Drug Allergy documented on EMR Reaction Allergy Type Onset Date Status Substance with sulfonamide structure and antibacterial mechanism of action (substance) sulfa (uncoded) Unknown Allergy Active Results Component Value Reference Range Flag Notes T pallidum Screening [place] -[id number] Reviewed date:01/12/2024 02:04:35 PM Interpretation:Non-reactive Performing Lab:[facility] [place], [address] [facility], Phone - [phone], Director - Natalie Notes/Report: T pallidum Antibodies Non Reactive Non Reactive HIV Ab/p24 Ag with Reflex-08 [id number] Reviewed date:01/12/2024 02:04:46 PM Interpretation:Non-reactive Performing Lab:[facility] [place], [address] [facility], [place], Phone - [phone], Director - Natalie Notes/Report: HIV Ab/p24 Ag Screen Non Reactive Non Reactive HIV-1/HIV-2 antibodies and HIV-1 p24 antigen were NOT detected. There is no laboratory evidence of HIV infection. HIV Negative Chlamydia/GC Amplification-1 [id number] Reviewed date:01/12/2024 02:04:58 PM Interpretation:Negative Performing Lab:[facility] [address], [address], [place], Phone - [phone], Director - [facility] Notes/Report: Chlamydia trachomatis, PENNIE Negative Negative Neisseria gonorrhoeae, PENNIE Negative Negative Ct/GC PENNIE, Rectal-[id number] Reviewed date:01/14/2024 09:06:21 AM Interpretation:GC Positive Performing Lab:[facility] [place], [address], [address], [place], Phone - [phone], Director [facility] Notes/Report: C. trachomatis, PENNIE, Rectal Negative Negative N. gonorrhoeae, PENNIE, Rectal Positive Negative A Ct/GC PENNIE, Pharyngeal-[id number] Reviewed date:01/12/2024 02:05:07 PM Interpretation:Negative Performing Lab:[facility] [place], [address], [address], [place], Phone - [phone], Director - [facility] Notes/Report: C. trachomatis, PENNIE, Pharyn Negative Negative N. gonorrhoeae, PENNIE, Pharyn Negative Negative Chlamydia/GC Amplification-1 [id number] Reviewed date:02/03/2024 01:22:11 PM Interpretation:Negative Performing Lab:[facility] [place], [address], [address], [place], Phone - [phone], Director - [facility] Notes/Report: Chlamydia trachomatis, PENNIE Negative Negative Neisseria gonorrhoeae, PENNIE Negative Negative Ct/GC PENNIE, Rectal-[id number] Reviewed date:02/03/2024 01:22:22 PM Interpretation:Negative Performing Lab:[facility] [place], [address], [address], [place], Phone - [phone], [facility] Notes/Report: C. trachomatis, PENNIE, Rectal Negative Negative N. gonorrhoeae, PENNIE, Rectal Negative Negative Ct/GC PENNIE, Pharyngeal-[id number] Reviewed date:02/15/2024 04:36:12 PM Interpretation:Negative Performing Lab:[facility] [place], [address], [address], [place], Phone - [phone], Director - [facility] Notes/Report: C. trachomatis, PENNIE, Pharyn Negative Negative N. gonorrhoeae, PENNIE, Pharyn Negative Negative T pallidum Screening [place] -[id number] Reviewed date:04/21/2024 04:43:51 PM Interpretation:Negative Performing Lab:[facility] [place], [address], [address], [place], Phone - [phone], Director - [facility] Notes/Report: Clinical Information:SRC:Urine T pallidum Antibodies Non Reactive Non Reactive HIV Ab/p24 Ag with Reflex-08 [id number] Reviewed date:04/21/2024 04:44:05 PM Interpretation:Negative Performing Lab:[facility] [place], [address], [address], [place], Phone - [phone], Director - [facility] Notes/Report: Clinical Information:SRC:Urine HIV Ab/p24 Ag Screen Non Reactive Non Reactive HIV-1/HIV-2 antibodies and HIV-1 p24 antigen were NOT detected. There is no laboratory evidence of HIV infection. HIV Negative Chlamydia/GC Amplification-1 [id number] Reviewed date:04/21/2024 04:44:48 PM Interpretation:Negative Performing Lab:[facility] [place], [address], [address], [place], Phone - [phone], Director - [facility] Notes/Report: Clinical Information:SRC:Urine Chlamydia trachomatis, PENNIE Negative Negative Neisseria gonorrhoeae, PENNIE Negative Negative Ct/GC PENNIE, Rectal-[id number] Reviewed date:04/21/2024 04:44:34 PM Interpretation:Negative Performing Lab:[facility] [place], [address], [address], [place], Phone - [phone], Director - [facility] Notes/Report: Clinical Information:SRC:Urine C. trachomatis, PENNIE, Rectal Negative Negative N. gonorrhoeae, PENNIE, Rectal Negative Negative Ct/GC PENNIE, Pharyngeal-[id number] Reviewed date:04/21/2024 04:44:21 PM Interpretation:Negative Performing Lab:[facility] [place], [address], [address], [place], Phone - [phone], Director - [facility] Notes/Report: Clinical Information:SRC:Urine C. trachomatis, PENNIE, Pharyn Negative Negative N. gonorrhoeae, PENNIE, Pharyn Negative Negative HBsAg Screen-[id number] Reviewed date:12/05/2024 11:41:37 AM Interpretation:negative Performing Lab:[facility] [place], [address], [address], [place], Phone - [phone], Director - [facility] Notes/Report: HBsAg Screen Negative Negative Hepatitis B Surf Ab Quant-00 [id number] Reviewed date:11/27/2024 11:59:55 AM Interpretation:Not Immune Performing Lab:[facility] [place], [address], [place], Phone - [phone], [facility] Notes/Report: Hepatitis B Surf Ab Quant <3.5 Immunity>10 mIU/mL L Status of Immunity Anti-HBs Level Inconsistent with Immunity 0.0 - 10.0 Consistent with Immunity >10.0 Hep B Core Ab, Tot-[id number] Reviewed date:12/05/2024 11:41:28 AM Interpretation:negative Performing Lab:[facility] [place], [address], [address], [place], Phone - [phone], [facility] Notes/Report: Hep B Core Ab, Tot Negative Negative T pallidum Screening [place] -[id number] Reviewed date:12/05/2024 11:41:20 AM Interpretation:non reactive Performing Lab:[facility] [place], [address], [address], [place], Phone - [phone], [facility] Notes/Report: T pallidum Antibodies Non Reactive Non Reactive HIV Ab/p24 Ag with Reflex-08 3935 Reviewed date:12/05/2024 11:42:17 AM Interpretation:non reactive Performing Lab:[facility], [address], [address], [place], Phone - [phone], [facility] Notes/Report: HIV Ab/p24 Ag Screen Non Reactive Non Reactive HIV-1/HIV-2 antibodies and HIV-1 p24 antigen were NOT detected. There is no laboratory evidence of HIV infection. HIV Negative HCV Antibody RFX to Quant PC [id number] Reviewed date:12/05/2024 11:41:13 AM Interpretation:non reactive Performing Lab:[facility] [place], [address], [address], [place], Phone - [phone], [facility] - [facility] Notes/Report: HCV Ab Non Reactive Non Reactive Interpretation: Not infected with HCV unless early or acute infection is suspected (which may be delayed in an immunocompromised individual), or other evidence exists to indicate HCV infection. Chlamydia/GC Amplification-1 [id number] Reviewed date:12/05/2024 11:41:45 AM Interpretation:negative Performing Lab:[facility], [address], [address], [place], Phone - [phone], Director - [facility] Notes/Report: Chlamydia trachomatis, PENNIE Negative Negative Neisseria gonorrhoeae, PENNIE Negative Negative Ct/GC PENNIE, Rectal-[id number] Reviewed date:12/05/2024 11:41:05 AM Interpretation:negative Performing Lab:[facility] [place], [address], [address], [place], Phone - [phone], Director - [facility] Notes/Report: C. trachomatis, PENNIE, Rectal Negative Negative N. gonorrhoeae, PENNIE, Rectal Negative Negative Ct/GC PENNIE, Pharyngeal-[id number] Reviewed date:12/05/2024 11:42:24 AM Interpretation:negative Performing Lab:[facility] [place], [address], [address], [place], Phone - [phone], Director - [facility] Notes/Report: C. trachomatis, PENNIE, Pharyn Negative Negative N. gonorrhoeae, PENNIE, Pharyn Negative Negative Reason For Referral No Information Medications Medication SIG (Take, Route, Frequency, Duration) Notes Start Date End Date Status Truvada 200-300 MG Tablet 1 tablet Orally Once a day; Duration: 90 days Not-Takin g/PRN Doxycycline Not-Taki ng/PRN Truvada 200-300 MG Tablet 1 tablet Orally Once a day; Duration: 30 days Not-Takin g/PRN Doxycycline Hyclate 100 MG Tablet 2 tablets Orally Take ideally within 24 hours but can be up to 72 hours after unprotected episode. No more than 1 dose in 24 hours; Duration: 30 days 04/15/2024 Not-Taking/PRN cefTRIAXone Sodium 500 MG Solution Reconstituted as directed Injection Once; Duration: 1 days Not-Takin g/PRN Gardasil 9 - Suspension Prefilled Syringe as directed Intramuscular stat; Duration: 1 11/24/2024 Active Immunizations Vaccine Route Administration Date Status Comme nts HPV 9 IM Intramuscular 11/24/2024 Administered Social History Sex Assigned At : Social History Observation Description Sex Assigned At Male Social History HIV Risk Assessment Social Info Question Answer Notes Additional Questions Is an HIV Risk Assessment being c onducted? Yes Did you have a blood transfusion prior to 1985? No Do you have an unlicensed body piercing or tattoo? No Reproductive Life Plan: Social Info Question Answer Notes Reproductive Life Plan: Do you want to h ave children? No, I don't want to have children How sure are you that you will be able to use your control method without any problems? Very sure People's plans change. Is it possible you or your partner could ever decide to become ? No Human Trafficking: Social Info Question Answer Notes Human Trafficking Experienced: No PrEP for HIV: Social Info Question Answer Notes PrEP for HIV Is the client intere sted in beginning/continuing PrEP for HIV? Yes In the past 6 months, have you had any HIV+ partners? No Are you a commercial sex worker? No Sexual History: Social Info Question Answer Notes Sexual History: Sexual History Reviewed: Partner s, Practices, Protection/Past STIs Currently sexually active? Yes Sexually active with: Men Number of male partners 1 Your sexual activities include: anal intercourse, oral intercourse Receptive Anal IC Do you use condoms? No Date of last unprotected intercourse: 01/25/2024 Number of partners in past 3 months: 10 Estimation per client Number of partners in past year: 20 Estimation per client Does your partner(s) currently have any STIs? No Counseling Provided: Social Info Question Answer Notes Counseling Provided Please indicate the length of time, in minutes, that counseling was provided. 8 Counseling Was Provided By: georgina Drugs/Alcohol: Social Info Question Answer Notes Drug/Alcohol Use Do you or have you used drugs? Yes, c urrently By what route are you taking drugs? Please check all that apply: Smoking Which drug(s) do you smoke? Marijuana When did you last use? Do you want to quit drugs? No Do you or have you used alcohol? Yes, currently Socially Food Access: Social Info Question Answer Notes Food Access The Client's current access to food is Secure Food Access Relationships: Social Info Question Answer Notes Relationships Has the client exper ienced any of the following: Client has never experienced harmful relationships Housing Social Info Question Answer Notes Housing The client's current living situation is: stable housing Tobacco Use: Social Info Question Answer Notes Tobacco Use: Do you/have you used tobacco? 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 Vital Signs Blood pressure diastolic 66 mm Hg 01/05/2024 Height 5'7 in 01/05/2024 Blood pressure systolic 118 mm Hg 01/05/2024 Weight 192.7 lbs 01/05/2024 BMI 30.18 kg/m2 01/05/2024 Encounters Encounter Location Date Provider Diagnosis [address] [id number] 01/05/2024 FELI MAYO Other [facility] (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 therapy Z79.899 ; Contact with and (suspected) exposure to other viral communicable diseases Z20.828 ; Encounter for screening for human immunodeficiency virus [HIV] Z11.4 ; Encounter for HIV pre-exposure prophylaxis Z29.81 and Encounter for screening for infections with a predominantly sexual mode of transmission Z11.[address] [id number] 01/13/2024 FELI MAYO Gonorrhea A54.[address] [id number] 01/27/2024 FELI MAYO Encounter for screen ing for infections with a predominantly sexual mode of transmission Z11.3 ; Counseling, unspecified Z71.9 and Other problems related to lifestyle Z72.[address] [id number] 04/15/2024 FELI MAYO Encounter for screen ing for human immunodeficiency virus [HIV] Z11.4 ; Encounter for HIV pre-exposure prophylaxis Z29.81 ; Encounter for screening for infections with a predominantly sexual mode of transmission Z11.3 ; Other problems related to lifestyle Z72.89 and Contact with or exposure to STI Z20.[address] [id number] 04/18/2024 ALEJO ROSALIO [place] [facility] [address] [place] [id number] 11/24/2024 FELI MAYO Encounter for screen ing for infections with a predominantly sexual mode of transmission Z11.3 ; Counseling, unspecified Z71.9 ; Other problems related to lifestyle Z72.89 ; Gardasil Z23 ; Anogenital (venereal) warts A63.0 ; HIV Screening Z11.4 and Screening for other viral diseases Z11.[address] [id number] 01/05/2024 FELI MAYO [facility] [address] [id number] 01/06/2024 FELI MAYO [facility] [address] [id number] 04/15/2024 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 MAYO 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.899 and HIV Screening Z11.4 Assessments Encounter Date Diagnosis (ICD Code) Assessment Notes Treatment Notes Treatment Clinical Notes Section Notes 01/05/2024 Other [facility] (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 therapy (ICD-10 - Z79.899) For [...] Obtaining/revi newton history Performing medically necessary exam Counseling/Java Android Developer rdination of Care Documenting the visit Educating the patient Ordering medication/yeni t/procedures Established Patient: [id number] 10 Minutes 01/27/2024 Encounter for screening for [...] Obtaining/revi newton history Performing medically necessary exam Counseling/Java Android Developer rdination of Care Documenting the visit Educating the patient Ordering medication/yeni t/procedures Established Patient: [id number] 10 Minutes 04/15/2024 Encounter for screening for [...] counts for the whole section) 04/15/2024 Other [facility] (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 therapy (ICD-10 - Z79.899) 04/15/2024 HIV Screening (ICD-10 - Z11.4) 11/24/2024 Encounter for screening for infections with a [...] management (this counts for the whole section) 11/24/2024 Counseling, unspecified (ICD-10 - Z71.9) Need 2 out of 3 Sections from A-C Section A) Problems (only need one from below) Section B) Data (need at least one of the following categories in this section) Category 1: (Choose three of the following): Order Unique tests Section C) Risk (any one of the following) Prescription drug management (this counts for the whole section) 04/15/2024 Encounter for HIV pre-exposure prophylaxis (ICD-10 [...] management (this counts for the whole section) 11/24/2024 Other problems related to lifestyle (ICD-10 - [...] Obtaining/revi newton history Performing medically necessary exam Counseling/Java Android Developer rdination of Care Documenting the visit Educating the patient Ordering medication/yeni t/procedures Established Patient: [id number] 10 Minutes 04/15/2024 Encounter for screening for [...] Obtaining/revi newton history Performing medically necessary exam Counseling/Java Android Developer rdination of Care Documenting the visit Educating the patient Ordering medication/yeni t/procedures Established Patient: [id number] 10 Minutes 01/05/2024 Encounter for screening for [...] management (this counts for the whole section) 11/24/2024 Gardasil (ICD-10 - Z23) No CI's to Gardasil vaccine. Reviewed benefits/risks. VIS sheet given. Clt observed for at least 15 min post injection. Tolerated well Need 2 out of 3 Sections from [...] management (this counts for the whole section) 11/24/2024 Anogenital (venereal) warts (ICD-10 - A63.0) Growths from photo shown do you suspicious for HPV warts. Reviewed possible treatment options. Clt with concerns with also having a lot of discomfort with hemorrhoids. Has a fu with PCP coming up soon. Suggested clt consider GI referral for hemorrhoids, HPV warts tx and can also consider doing anal paping if the GI specialist offers that. Need 2 out of 3 Sections from [...] management (this counts for the whole section) 11/24/2024 HIV Screening (ICD-10 - Z11.4) Need 2 out of 3 Sections from A-C Section A) Problems (only need one from below) Section B) Data (need at least one of the following categories in this section) Category 1: (Choose three of the following): Order Unique tests Section C) Risk (any one of the following) Prescription drug management (this counts for the whole section) 11/24/2024 Screening for other viral diseases (ICD-10 - [...] for the whole section) Plan Of Treatment Next Appt Details Provider Name:FELI MAYO 04/2024 01:00:00 PM, [address] [place] [address], [phone], Insurance Providers Payer Name Payer Address Payer Phone Subscriber Number Group Number Insured Name Patient Relationship to Insured Coverage Start Date Coverage End Date [facility] [address] [place], [place] [phone] [id number] Pedro Cohen Self - patient is the insured Medications Administered Medication Instructions Date of Administration Dosage Notes Rocephin / Ceftriaxone 01/13/2024 500 mg FELI MAYO 2023 01:34:56 PM EDT > reconstituted with 1% lidocaine Medical (General) History Medical History History ICD Code Rectal chlamydia 07/2021 Chronic urethral burning- urology follow up GC rectal 12/2023 Hemorrhoids Possible perianal HPV growths as of 12/13 25 Surgical History Surgery Date(Month/Year) undecended testicles- as a child Hospitalization History Reason Date(Month/Year) see above kidney stones-x2 10/2020
== END 2024-12-21 09:02 | disposition home or self-care (01) ==
LOC: HO.HGS 08:41
PROVIDERS: PCP Nurse Practitioner Family; Visit Provider Surgery
DX: A63.0 Anogenital (venereal) warts (principal); K64.8 Other hemorrhoids; K64.4 Residual hemorrhoidal skin tags
CPT/HCPCS: 46600; 99203

== ENCOUNTER → 2024-12-21 08:41 | Outpatient (BNVA) | payer OTHER, SELFPAY | PROVIDERS: PCP Nurse Practitioner Family; Visit Provider Surgery | DX: A63.0 Anogenital (venereal) warts (principal) | CPT/HCPCS: 46600 ==

== ENCOUNTER 2025-01-09 11:24 | Day surgery (SDC) | payer OTHER, SELFPAY ==
[2025-01-05 10:34] VITALS: BMI 30.4
[2025-01-09] VITALS (8 sets, daily range): BP systolic 115–136; BP diastolic 76–87; PULSE 66–85; RESP 16–18; TEMP 36.6–36.9; O2SAT 94–99; BMI 31.3
[2025-01-09] MEDS: Lactated Ringers 1,000 ML 100 ML IVCONT (11:52)
--- NOTE | 2025-01-09 14:21 | HO.ANESPROP2 ---
Documented by User: Elizabeth Pollock NP 01/08/25 08:36 HPI - Anesthesia Eval Consult details Narrative: 29yo M for EUA,Excision/Fulgurationof Perianal Condyloma, Hemorrhoidectomy PMFSH Active Problems Active Problems: All Active Problems Mixed internal and external hemorrhoid (Acute) Condyloma acuminatum of anus (Acute) Dyslipidemia (high LDL; low HDL) (Acute) Anal mucosal wart due to human papillomavirus (HPV) (Acute) Current nicotine vapor product user on some days (Acute) Marihuana user (Acute) Reactive airway disease (Acute) Plantar fasciitis, right (Acute) Hemorrhoids (Acute) Need for Tdap vaccination (Acute) History of renal stone (Acute ~2020) Hx of hydronephrosis (Acute ~2020) History of anxiety (Acute) Hx of major depression (Acute) Hx of attention deficit hyperactivity disorder (Acute) Encounter for general adult medical examination without abnormal findings (Acute ~12/05/24) Past Medical History Medical History (Updated 12/21/24 @ 09:07 by Jonathan Valencia MD) Mixed internal and external hemorrhoid Condyloma acuminatum of anus Male circumcision Anxiety Chlamydia HPV (human papilloma virus) infection STD (sexually transmitted disease) GERD (gastroesophageal reflux disease) Undescended testicle Family History Family History Maternal Grandfather Diabetes Surgical History Surgical History No pertinent past surgical history Social History Social History Household Members: Other Household Members Other:: Brother Housing: Apartment Are you a primary childcare center administrator to a significant other at home: No Do you presently have visiting nurse or other home services: No Alcohol intake: current Alcohol intake frequency: a few times a month Patient Tobacco Use Status: Current everyday Tobacco user Tobacco use type: Smokeless Tobacco e-Cigarette/Vaping Use: Never Used Second Hand Smoke Exposure: No Use of substances other than those prescribed or required for medical reasons: Yes Advance Directives: No Advance Directives Information Provided: Yes service: No Current occupational status: employed 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 Cognitive needs: No Hearing needs: No Vision needs: Yes (wear glasses) Meds Allergies Allergy/AdvReac Type Severity Reaction Status Date / Time Sulfa (Sulfonamide Allergy Unknown UNKNOWN Verified 12/21/24 08:50 Antibiotics) (SULFA (SULFONAMIDE ANTIBIOTICS)) Home Medications ?Medication ?Instructions ?Recorded ?Confirmed ?Last Taken ?Type No Known Home Meds 12/05/24 12/21/24 Unknown History Exam Height,Weight and Vital Signs: Height 5 ft 6.5 in Weight 86.636 kg Pertinent Lab Results Pertinent Lab Results: Laboratory Tests 12/05/24 15:25 WBC 8.5 Hgb 14.9 Hct 42.6 Plt Count 273 Sodium 142 Potassium 3.7 Chloride 109 H Carbon Dioxide 25 BUN 12 Creatinine 0.81 Assessment and Plan Assessment Anesthesia Assessment: Chart Reviewed Documented by User: Genna Diaz DO 01/09/25 14:24 HPI - Anesthesia Eval Consult details Narrative: 29yo M for EUA,Excision/Fulgurationof Perianal Condyloma PMFSH Past Medical History Medical History (Updated 12/21/24 @ 09:07 by Jonathan Valencia MD) Mixed internal and external hemorrhoid Condyloma acuminatum of anus Male circumcision Anxiety Chlamydia HPV (human papilloma virus) infection STD (sexually transmitted disease) GERD (gastroesophageal reflux disease) Undescended testicle Family History Family History Maternal Grandfather Diabetes Family history of problems with anesthesia: No Surgical History Surgical History No pertinent past surgical history History of Problems with Anesthesia: No Social History Social History Household Members: Other Household Members Other:: Brother Housing: Apartment Are you a primary childcare center administrator to a significant other at home: No Do you presently have visiting nurse or other home services: No Alcohol intake: current Alcohol intake frequency: a few times a month Patient Tobacco Use Status: Current everyday Tobacco user Tobacco use type: Smokeless Tobacco e-Cigarette/Vaping Use: Never Used Second Hand Smoke Exposure: No Use of substances other than those prescribed or required for medical reasons: Yes Advance Directives: No Advance Directives Information Provided: Yes service: No Current occupational status: employed 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 Cognitive needs: No Hearing needs: No Vision needs: Yes (wear glasses) Meds Allergies Allergy/AdvReac Type Severity Reaction Status Date / Time Sulfa (Sulfonamide Allergy Unknown UNKNOWN Verified 12/21/24 08:50 Antibiotics) (SULFA (SULFONAMIDE ANTIBIOTICS)) Home Medications ?Medication ?Instructions ?Recorded ?Confirmed ?Last Taken ?Type No Known Home Meds 12/05/24 12/21/24 Unknown History Exam Exam Date and Time: 01/09/25 1422 Height,Weight and Vital Signs: Height 5 ft 6.5 in Weight 86.636 kg Vital Signs Temperature 98.5 F 01/09/25 11:51 Pulse Rate 74 01/09/25 11:51 Respiratory Rate 16 01/09/25 11:51 Blood Pressure 136/76 01/09/25 11:51 Pulse Oximetry 96 01/09/25 11:51 Oxygen Delivery Method Room Air 01/09/25 11:51 Temperature 98.5 F 01/09/25 11:51 Pulse Rate 74 01/09/25 11:51 Respiratory Rate 16 01/09/25 11:51 Blood Pressure 136/76 01/09/25 11:51 Pulse Oximetry 96 01/09/25 11:51 Oxygen Delivery Method Room Air 01/09/25 11:51 Airway Mallampati Class: I TM Dist: >3cm Loose/Missing/Broken Teeth: No (patient denies any loose or broken teeth) Heart: S1S2 Lungs: CTAB Assessment and Plan Assessment Anesthesia Assessment: Anesthesia Plan Discussed and Chart Reviewed Final Anesthetic Review Family History of Problems with Anesthesia: No History of Problems with Anesthesia: No NPO: Yes ASA Class: II Final Preanesthetic Review: No Changes in Pt Med Stat, Meds/Allgs Chart Reviewed, Consent Obtained/Reviewed and Anes Risks/Benef Reviewed Patient Risk: Low Procedure Risk: Low Anesthetic Plan Anesthetic Plan: GA and Agree w/ Assess. and Plan Disposition: Standard PACU
--- NOTE | 2025-01-09 14:32 | MHC.SHP ---
Pre-Procedural Eval Section A - 24 Hr Update-Section A only Date of Service: 01/09/25 The patient is an INPATIENT: No The patient has been examined within 24 hours of the surgical procedure. The History & Physical has been completed within 30 days and I have reviewed it.: Yes Section B - Complete if H&P > 30 days Chief Complaint: Residual hemorrhoidal skin tags,Anogenital Allergies: Allergies Allergy/AdvReac Type Severity Reaction Status Date / Time Sulfa (Sulfonamide Allergy Unknown UNKNOWN Verified 12/21/24 08:50 Antibiotics) (SULFA (SULFONAMIDE ANTIBIOTICS)) Plan I have reviewed the history and physical and performed a pertinent physical examination on my patient. No changes have occurred unless specified. Time Spent With Patient Time: Total time managing care of this patient today ____ minutes.
--- NOTE | 2025-01-09 15:24 | P.OP_ITS ---
Operative Note Operative Note Date of Service: 01/09/25 Narrative: Preop diagnosis: Perianal condyloma, and internal external hemorrhoids Postop diagnosis: The same Procedure: Exam under anesthesia, excision of perianal condyloma x2, hemorrhoidectomy x2 columns Surgeon: Jonathan Valencia MD The patient is a 29-year-old male who was referred to me because of condylomatous lesions in the perianal area along with hemorrhoids. He wanted to proceed with excision of these small condylomatous lesions as well as hemorrhoidectomy. He understood the technique of the planned procedure as was the risks, benefits, and alternatives. He was brought to the operating room and placed in prone aissatou-knife position under general anesthesia via endotracheal tube. The buttocks were retracted with wide tape laterally. The perianal area was prepped and draped in the usual sterile fashion. A surgical time-out was done. The patient received Cefotan 2 g IV preoperatively Examination of the anal orifice revealed external hemorrhoids on both the left and right side which were prominent. There was note of small condylomatous lesions probably a 2-3 mm, 1 on each side. He apparently had more in the past. I inserted the Beena Hoover retractor. I examined the anal canal circumferentiall y. There was note of prominent internal external hemorrhoids on both the left and right side. I excised 1 small condylomatous lesion about 2 mm in size in the left side and this was sent as specimen. This was done using Metzenbaum scissors I cauterized another small condylomatous lesion also about 2 mm in size anteriorly I applied a Denise grasper on the hemorrhoidal column on the left to retract this out in the field. I made a brmegs-vl-mhjkq stitch at the pedicle using a chromic 3-0. I made an incision around this hemorrhoidal column to the perianal skin with a blade 15. He had I excised this hemorrhoidal column above the plane of the sphincters with scissors. I closed this incision with a running chromic 3-0 stitch with additional hemostatic sutures placed I then proceeded to him removed the hemorrhoidal column on the right. This was retracted with a Denise grasper. I made a denjae-lq-uqatw stitch at the pedicle and made an incision around this hemorrhoidal column to the perianal skin. I excised this hemorrhoidal column above the plane of the sphincters using scissors and I closed the incision with a running chromic 3-0 stitch. Additional hemostatic etvzvy-io-wzpcx sutures were placed Once hemostasis was confirmed, I proceeded to then infiltrated the perianal area with Marcaine 0.5% for postop analgesia. Dressings were applied. The procedure was completed. The patient tolerated procedure well. There were no immediate complications. Initial I final counts of sponges and instruments were correct. Estimated blood loss was about 40 cc. The patient is extubated without difficulty and transferred to the recovery room with stable vital signs.
[2025-01-09] MEDS: oxyCODONE HCl Immed Release 5 MG TABLET PO (15:33)
== END 2025-01-09 16:14 | disposition home or self-care (01) ==
PROVIDERS: PCP Nurse Practitioner Family; Visit Provider Surgery
PROC: 0DBQXZZ Excision of Anus, External Approach (ICD-10-PCS; CPT 46260; principal; 2025-01-09 13:20)
PROC: (CPT 46260; 2025-01-09 13:20)
DX: K64.8 Other hemorrhoids (principal); K64.4 Residual hemorrhoidal skin tags; A63.0 Anogenital (venereal) warts; A74.9 Chlamydial infection, unspecified; Q53.9 Undescended testicle, unspecified; K21.9 Gastro-esophageal reflux disease without esophagitis; F41.9 Anxiety disorder, unspecified; Z88.2 Allergy status to sulfonamides
CPT/HCPCS: 46260; 46922; 46910; 88304; 88305; J0330; J1100; J1596; J1885; J2003; J2250; J2405; J2704; J2795; J3010

== ENCOUNTER → 2025-01-09 11:24 | Outpatient (BNV) | payer OTHER, SELFPAY | PROVIDERS: PCP Nurse Practitioner Family; Visit Provider Surgery | DX: K64.8 Other hemorrhoids (principal); A63.0 Anogenital (venereal) warts | CPT/HCPCS: 46260; 46922 ==

== ENCOUNTER 2025-01-22 15:27 | Outpatient (AMB) | payer OTHER, SELFPAY ==
--- OUTSIDE RECORDS SUMMARY | 2024-07-17 13:15 | XMS_ITS ---
Author Organization [facility] Address [address] [place] [phone] Care Team Providers Care Strip Roller Name Role Phone ALEJO MADISON Unavailable [phone] REASON FOR VISIT prep fu/sti testing Social History Sex Assigned At : Social History Observation Description Sex Assigned At Male Encounters Encounter Location Date Provider Diagnosis [facility] [address] [place] [phone] 07/17/2024 ALEJO MADISON Plan Of Treatment Next Appt Details Provider Name:FELI MAYO, 04/2024 01:00:00 PM, [address] [place] [address], [id number], Progress Notes * CHAPARROPedroDOB:1995 (29 yo M)Acc No.[id number]:07/17/2024 Progress Notes Patient: Pedro Lara Provider: Keturah Madison NP :1995 A ge:29 Y S ex:Male Date:07/17/2024 Address:[address] [place] [address], [address], [id number] Subjective: * Chief Complaints: * P rep fu/sti testing * Electronic signature of LAUREN MADISON NP on 01/22/2025 at 05:27 PM EDT Sign off status: Pending * Provider: Keturah Madison NP Date: 07/17/2024 Generated for Printi ng/Faxing/eTransmitting on: 0 01/22/2025 05:27 PM EDT
--- NOTE | 2025-01-22 15:36 | MHC.OFFVIS ---
Vital Signs 01/22/25 15:37 Height 5 ft 8 in Weight 200 lb 4 oz BMI 30.4 Intake Visit Reasons: S/P perianal condyloma, hemorrhoidectomy Intake Note: This patient presents for post-op assessment status post Exam under anesthesia, excision of perianal condyloma x2, hemorrhoidectomy x2 columns. Pt c/o; intermittent pain, reports no rectal bleeding. Learning Developer Required: No Accompanied by: Self / Same As Patient Allergies Sulfa (Sulfonamide Antibiotics) (SULFA (SULFONAMIDE ANTIBIOTICS)) Allergy (Unknown, Verified 01/22/25 15:46) UNKNOWN Medication List - Last Reconciled 01/22/25 by Jonathan Valencia MD docusate sodium (Colace) 100 mg PO BID ibuprofen 600 mg PO Q6H PRN lidocaine 4% 1 ea topical TID PRN oxycodone-acetaminophen 5-325 mg 1 tab PO Q6H PRN HPI HPI S/P perianal condyloma, hemorrhoidectomy: Details: He had undergone hemorrhoidectomy and excision of a small perianal condyloma last January 09, 2025. He tolerated procedure well He has had some pain issues but he is starting to feel better the past few days. He had been constipated as well. [facility] Medical History Mixed internal and external hemorrhoid Condyloma acuminatum of anus Male circumcision Anxiety Chlamydia HPV (human papilloma virus) infection STD (sexually transmitted disease) GERD (gastroesophageal reflux disease) Undescended testicle Surgical History History of hemorrhoidectomy (~01/09/25) No pertinent past surgical history Family History Maternal Grandfather Diabetes Social History Household Members: Other Household Members Other:: Brother Both parents involved: No Caregiver staying overnight: No Housing: Apartment Are you a primary day care teacher to a significant other at home: No Do you presently have visiting nurse or other home services: No 75 years or older and lives alone: No Alcohol intake: current Alcohol intake frequency: a few times a month Comment: counts correct Patient Tobacco Use Status: Current everyday Tobacco user Tobacco use type: Smokeless Tobacco e-Cigarette/Vaping Use: Never Used Second Hand Smoke Exposure: No service: No Current occupational status: employed 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 Cognitive needs: No Hearing needs: No Vision needs: Yes (wear glasses) Review of Systems Const Denies chills and Denies fever(s) Resp Denies cough Physical Exam Vital Signs: BMI result Body Mass Index 30.4 Const General: comfortable and no acute distress Resp Effort & Inspection: normal respiratory effort GI Other: Rectal exam shows the hemorrhoidectomy sites to be healing well with any fluctuance, induration, discharge or cellulitis Assessment & Plan Assessment & Plan (1) Mixed internal and external hemorrhoid: Code(s): K64.8 - Other hemorrhoids; K64.4 - Residual hemorrhoidal skin tags Category: Medical Plan: Status post hemorrhoidectomy and excision of the condyloma. His incisions are actually healing well. He did have some pain issues the 1st we but this is slowly improving I instructed him to continue to do hot Sitz baths as well as high fiber supplements. He can follow up in the office on a p.r.n. basis. (2) Condyloma acuminatum of anus: Code(s): A63.0 - Anogenital (venereal) warts Category: Medical Plan: Small condylomas were removed. There were no residual condylomas on residual exam Coding Level of Care Code New Pt Level 3 (25742) Global (43322) Diagnoses Mixed internal and external hemorrhoid K64.8; K64.4 Condyloma acuminatum of anus A63.0
[2025-01-22 15:37] VITALS: BMI 30.4
--- OUTSIDE RECORDS SUMMARY | 2025-01-22 17:28 | XMS_ITS | Patient Health Record ---
Author Organization [facility] Address [address] [place], [place] [id number] Care Team Providers Care Cardiac Tech Name Role Phone CHRISTINEALEJO Duncan Unavailable [phone] FELI MAYO Unavailable [phone] Allergies Allergen (clinical drug ingredient) Drug/Non Drug Allergy documented on EMR Reaction Allergy Type Onset Date Status Substance with sulfonamide structure and antibacterial mechanism of action (substance) sulfa (uncoded) Unknown Allergy Active Results Component Value Reference Range Flag Notes Chlamydia/GC Amplification-1 [id number] Reviewed date:02/03/2024 01:22:11 PM Interpretation:Negative Performing Lab:[facility], [address], [address], [place], Phone - [phone], Director - [facility] Notes/Report: Chlamydia trachomatis, PENNIE Negative Negative Neisseria gonorrhoeae, PENNIE Negative Negative Ct/GC PENNIE, Rectal-[id number] Reviewed date:02/03/2024 01:22:22 PM Interpretation:Negative Performing Lab:[facility], [address], [address], [place], Phone - [phone], Director - [facility] Notes/Report: C. trachomatis, PENNIE, Rectal Negative Negative N. gonorrhoeae, PENNIE, Rectal Negative Negative Ct/GC PENNIE, Pharyngeal-[id number] Reviewed date:02/15/2024 04:36:12 PM Interpretation:Negative Performing Lab:[facility], [address], [address], [place], Phone - [phone], Director - [facility] Notes/Report: C. trachomatis, PENNIE, Pharyn Negative Negative N. gonorrhoeae, PENNIE, Pharyn Negative Negative T pallidum Screening Wetzel -[id number] Reviewed date:04/21/2024 04:43:51 PM Interpretation:Negative Performing Lab:[facility] [place], [address], [address], [place], Phone - [phone], Director - [facility] Notes/Report: Clinical Information:SRC:Urine T pallidum Antibodies Non Reactive Non Reactive HIV Ab/p24 Ag with Reflex-08 [id number] Reviewed date:04/21/2024 04:44:05 PM Interpretation:Negative Performing Lab:[facility] [place], [address], [address], [place], Phone - [phone], Director - [facility] Notes/Report: Clinical Information:SRC:Urine HIV Ab/p24 Ag Screen Non Reactive Non Reactive HIV-1/HIV-2 antibodies and HIV-1 p24 antigen were NOT detected. There is no laboratory evidence of HIV infection. HIV Negative Chlamydia/GC Amplification-1 [id number] Reviewed date:04/21/2024 04:44:48 PM Interpretation:Negative Performing Lab:[facility] [place], [address], [address], [place], Phone - [phone], Director - [facility] Notes/Report: Clinical Information:SRC:Urine Chlamydia trachomatis, PENNIE Negative Negative Neisseria gonorrhoeae, PENNIE Negative Negative Ct/GC PENNIE, Rectal-[id number] Reviewed date:04/21/2024 04:44:34 PM Interpretation:Negative Performing Lab:[facility] [place], [address], [address], [place], Phone - [phone], Director - [facility] Notes/Report: Clinical Information:SRC:Urine C. trachomatis, PENNIE, Rectal Negative Negative N. gonorrhoeae, PENNIE, Rectal Negative Negative Ct/GC PENNIE, Pharyngeal-[id number] Reviewed date:04/21/2024 04:44:21 PM Interpretation:Negative Performing Lab:[facility] [place], [address], [address], [place], Phone - [phone], Director - [facility] Notes/Report: Clinical Information:SRC:Urine C. trachomatis, PENNIE, Pharyn Negative Negative N. gonorrhoeae, PENNIE, Pharyn Negative Negative HBsAg Screen-[id number] Reviewed date:12/05/2024 11:41:37 AM Interpretation:negative Performing Lab:[facility] [place], [address], [address], [place], Phone - [phone], Director - [facility] Notes/Report: HBsAg Screen Negative Negative Hepatitis B Surf Ab Quant-00 [id number] Reviewed date:11/27/2024 11:59:55 AM Interpretation:Not Immune Performing Lab:[facility], [address], [address], [place], Phone - [phone], Director - [facility] Notes/Report: Hepatitis B Surf Ab Quant <3.5 Immunity>10 mIU/mL L Status of Immunity Anti-HBs Level Inconsistent with Immunity 0.0 - 10.0 Consistent with Immunity >10.0 Hep B Core Ab, Tot-[id number] Reviewed date:12/05/2024 11:41:28 AM Interpretation:negative Performing Lab:[facility], [address], [address], [place], Phone - [phone], Director - [facility] Notes/Report: Hep B Core Ab, Tot Negative Negative T pallidum Screening Wetzel -[id number] Reviewed date:12/05/2024 11:41:20 AM Interpretation:non reactive Performing Lab:[facility], [address], [address], [place], Phone - [phone], [facility] - [facility] Notes/Report: T pallidum Antibodies Non Reactive Non Reactive HIV Ab/p24 Ag with Reflex-08 [id number] Reviewed date:12/05/2024 11:42:17 AM Interpretation:non reactive Performing Lab:[facility], [address], [address], [place], Phone - [phone], Director - [facility] Notes/Report: HIV Ab/p24 Ag Screen Non Reactive Non Reactive HIV-1/HIV-2 antibodies and HIV-1 p24 antigen were NOT detected. There is no laboratory evidence of HIV infection. HIV Negative HCV Antibody RFX to Quant PC [id number] Reviewed date:12/05/2024 11:41:13 AM Interpretation:non reactive Performing Lab:[facility], [address], [address], [place], Phone - [phone], Director - [facility] Notes/Report: HCV Ab Non Reactive Non Reactive Interpretation: Not infected with HCV unless early or acute infection is suspected (which may be delayed in an immunocompromised individual), or other evidence exists to indicate HCV infection. Chlamydia/GC Amplification-1 [id number] Reviewed date:12/05/2024 11:41:45 AM Interpretation:negative Performing Lab:[facility] [place], [address], [place], Phone - [phone], Director - [facility] Notes/Report: Chlamydia trachomatis, PENNIE Negative Negative Neisseria gonorrhoeae, PENNIE Negative Negative Ct/GC PENNIE, Rectal-[id number] Reviewed date:12/05/2024 11:41:05 AM Interpretation:negative Performing Lab:[facility] [place], [address], [place], Phone - [phone], Director - [facility] Notes/Report: C. trachomatis, PENNIE, Rectal Negative Negative N. gonorrhoeae, PENNIE, Rectal Negative Negative Ct/GC PENNIE, Pharyngeal-[id number] Reviewed date:12/05/2024 11:42:24 AM Interpretation:negative Performing Lab:[facility] [place], [address], [place], Phone - [phone], Director - [facility] Notes/Report: C. trachomatis, PENNIE, Pharyn Negative [...] Status W/U Status Risk Notes Problem Anogenital warts ([id number]) Anogenital (venereal) warts (A63.0) Active confirmed Encounters Encounter Location Date Provider Diagnosis [facility] [address] [place], [place] [id number] 01/27/2024 FELI MAYO Encounter for screen ing for infections with a predominantly sexual mode of transmission Z11.3 ; Counseling, unspecified Z71.9 and Other problems related to lifestyle Z72.[address] [id number] 04/15/2024 FELI MAYO Encounter for screen ing for human immunodeficiency virus [HIV] Z11.4 ; Encounter for HIV pre-exposure prophylaxis Z29.81 ; Encounter for screening for infections with a predominantly sexual mode of transmission Z11.3 ; Other problems related to lifestyle Z72.89 and Contact with or exposure to STI Z20.[address] [id number] 04/18/[address] [id number] 11/24/2024 FEIL MAYO Encounter for screen ing for infections with a predominantly sexual mode of transmission Z11.3 ; Counseling, unspecified Z71.9 ; Other problems related to lifestyle Z72.89 ; Gardasil Z23 ; Anogenital (venereal) warts A63.0 ; HIV Screening Z11.4 and Screening for other viral diseases Z11.[address] [id number] 04/15/2024 FELI MAYO Other [facility] (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 therapy Z79.899 and HIV Screening Z11.4 Assessments Encounter Date Diagnosis (ICD Code) Assessment Notes Treatment Notes Treatment Clinical Notes Section Notes 01/27/2024 Encounter for screening for infections with [...] Obtaining/revi [place] history Performing medically necessary exam Counseling/Shadowgraph Scale Operator rdination of Care Documenting the visit Educating the patient Ordering medication/yeni t/procedures Established Patient: 12986 10 Minutes 04/15/2024 Encounter for screening for [...] counts for the whole section) 04/15/2024 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 (ICD-10 - Z79.899) 04/15/2024 [...] Obtaining/revi [place] history Performing medically necessary exam Counseling/Shadowgraph Scale Operator rdination of Care Documenting the visit Educating the patient Ordering medication/yeni t/procedures Established Patient: 89762 10 Minutes 04/15/2024 Encounter for screening for [...] Obtaining/revi [place] history Performing medically necessary exam Counseling/Shadowgraph Scale Operator rdination of Care Documenting the visit Educating the patient Ordering medication/yeni t/procedures Established Patient: 38764 10 Minutes 04/15/2024 Other problems related to lifestyle (ICD-10 [...] Details Provider Name:FELI MAYO, 04/2024 01:00:00 PM, [address] [place] [address], [phone], Insurance Providers Payer Name Payer Address Payer Phone Subscriber Number Group Number Insured Name Patient Relationship to Insured Coverage Start Date Coverage End Date [facility] [address] [place], [place] [phone] [id number] Pedro Cohen Self - patient is the [...]
== END 2025-01-22 16:08 | disposition home or self-care (01) ==
LOC: HO.HGS 15:27
PROVIDERS: PCP Nurse Practitioner Family; Visit Provider Surgery
DX: K64.8 Other hemorrhoids (principal); K64.4 Residual hemorrhoidal skin tags; A63.0 Anogenital (venereal) warts
CPT/HCPCS: 99024

== ENCOUNTER 2025-02-01 10:27 | Outpatient (AMB) | payer OTHER, SELFPAY ==
--- NOTE | 2025-02-01 10:31 | MHC.OFFVIS ---
Vital Signs 02/01/25 10:40 Height 5 ft 8 in Weight 200 lb BMI 30.4 BP 134/73 Blood Pressure Location Lt brachial Position Sitting Pulse 81 Intake Visit Reasons: S/P perianal condyloma, hemorrhoidectomy Intake Note: Patient is seen in office for post op assessment post perianal condyloma, hemorhoidectomy. Pt c/o:denies any bleeding, admits to increse pain worse after a bowel movements, taking Ibuprofen, needs a note for work Proof Technician Required: No Accompanied by: Self / Same As Patient Allergies Sulfa (Sulfonamide Antibiotics) (SULFA (SULFONAMIDE ANTIBIOTICS)) Allergy (Unknown, Verified 02/01/25 10:40) UNKNOWN HPI HPI S/P perianal condyloma, hemorrhoidectomy: Details: He is here for follow-up after hemorrhoidectomy last January 09, 2025. He had described pain after bowel movements. He denies any bleeding. He says he is able to sit down comfortably. [facility] Medical History Mixed internal and external hemorrhoid Condyloma acuminatum of anus Male circumcision Anxiety Chlamydia HPV (human papilloma virus) infection STD (sexually transmitted disease) GERD (gastroesophageal reflux disease) Undescended testicle Surgical History History of hemorrhoidectomy (~01/09/25) No pertinent past surgical history Family History Maternal Grandfather Diabetes Social History Household Members: Other Household Members Other:: Brother Both parents involved: No Caregiver staying overnight: No Housing: Apartment Are you a primary healthcare management to a significant other at home: No Do you presently have visiting nurse or other home services: No 75 years or older and lives alone: No Alcohol intake: current Alcohol intake frequency: a few times a month Comment: counts correct Patient Tobacco Use Status: Current everyday Tobacco user Tobacco use type: Smokeless Tobacco e-Cigarette/Vaping Use: Never Used Second Hand Smoke Exposure: No service: No Current occupational status: employed 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 Cognitive needs: No Hearing needs: No Vision needs: Yes (wear glasses) Review of Systems Const Denies chills and Denies fever(s) GI Denies hematochezia Physical Exam Const Other: Sitting down comfortably General: comfortable and no acute distress Resp Effort & Inspection: normal respiratory effort GI Other: Rectal exam shows the hemorrhoidectomy sites to be healing well, no evidence of infection, no induration, no discharge Assessment & Plan Assessment & Plan (1) Mixed internal and external hemorrhoid: Code(s): K64.8 - Other hemorrhoids; K64.4 - Residual hemorrhoidal skin tags Category: Medical Plan: Status post hemorrhoidectomy and removal of condyloma. He says he is not ready to return to work next week because of his pain after bowel movements. He states that he will we will be ready to go back to her probably in about 2 more weeks after that His incision actually healing well. He can follow up with us on a p.r.n. basis. Coding Level of Care Code Global (33092) Diagnoses Mixed internal and external hemorrhoid K64.8; K64.4
[2025-02-01 10:40] VITALS: BP 134/73; PULSE 81; BMI 30.4
== END 2025-02-01 10:52 | disposition home or self-care (01) ==
LOC: HO.HGS 10:28
PROVIDERS: PCP Nurse Practitioner Family; Visit Provider Surgery
DX: K64.8 Other hemorrhoids (principal); K64.4 Residual hemorrhoidal skin tags
CPT/HCPCS: 99024